=== PATIENT | female | born 1935 | race Asian ===

== ENCOUNTER 2018-01-25 20:22 | Inpatient (IN) | payer OTHER ==
[~2018-01-25] VITALS: Ht 154.9 cm; Wt 45.8 kg
[2018-01-25 20:22] VITALS: BP 87/56
[~2018-01-25 20:22] MED LIST: AMLO1TAB11 PO; ASPI81CT89 PO; CARV3.122 PO; CLOP75TA PO; FERR325E14 PO; MECL-305 PO; PANT40EC PO; PHO667 PO; SIMV10TA1 PO; VITA1TAB44 PO; [UNRECOGNIZED DRUG - CODE] PO
--- NOTE | 2018-01-25 20:22 | NUR ---
Patient noted to have existing wounds upon arrival to ER. Photos taken of wound and placed in chart. Wound covered with dressing. Physician informed.
--- NOTE | 2018-01-25 20:22 | NUR ---
NAS ALS TO ER BED 1
--- NOTE | 2018-01-25 20:24 | NUR ---
82YO F BIBA FOR SOB FROM HOME. EMS STATE THAT PT HAD SOB X 2 DAYS. PT RESPONDS TO PAIN AND WITHDRAWS. PT WITH HX OF DEMENTIA , ESRD, HTN, DM, HYPERLIPIDIMA. PT IS ANURIC. DIALYSIS M/W/F. BILATERAL CRACKLES IN LOWER BACES WITH INSPRITORY WHEEZING , PT ON 10L NON REBREATHER, O2 SAT AT 97. HR IRREGULAR AND RAPID AT 144, G-TUBE NOTED TO UPPER ABD, BS ACTIVE X4QUAD. 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 MULTIPLE ULCERATIONS NOTED, SACRAL, BILAT HEALS. DIALYSIS CATHETER NOTED TO RIGHT UPPER CHEST. WILL CONTINUE TO MONITOR, ER MD MADE AWARE
[2018-01-25] MEDS ORDERED: NACL 0.9% 1,000 ML IV ONE (20:35)
[2018-01-25 20:56] LABS: BASOPHILS # (AUTO) 0.1 K/uL (0.00-0.22); BASOPHILS % (AUTO) 0.4 % (0.0-2.0); EOSINOPHILS # (AUTO) 0.2 K/uL (0-0.4); EOSINOPHILS % (AUTO) 1.6 % (0.0-4.0); HEMATOCRIT 27.5 % (36-48); HEMOGLOBIN 8.5 g/dL (12.0-16.0); LYMPHOCYTES # (AUTO) 1.8 K/uL (2.5-16.5); LYMPHOCYTES % (AUTO) 11.8 % (20.5-51.1); MEAN CORPUSCULAR HEMOGLOBIN 26 pg (27-31); MEAN CORPUSCULAR HGB CONC 31 g/dL (33-37); MEAN CORPUSCULAR VOLUME 84.1 fL (80-94); MONOCYTES # (AUTO) 1.1 K/uL (0.8-1.0); MONOCYTES % (AUTO) 7.5 % (1.7-9.3); NEUTROPHILS % (AUTO) 78.7 % (42.2-75.2); PLATELET COUNT (AUTO) 343 K/uL (140-450); RED BLOOD CELL COUNT(AUTO) 3.27 MIL/uL (4.20-5.40); RED CELL DISTRIBUTION WIDTH 18.4 % (11.6-13.7); WHITE BLOOD COUNT (AUTO) 15.3 K/uL (4.8-10.8)
[2018-01-25 21:18] LABS: ASPARTATE AMINOTRANSFERASE 37 U/L (15-37); CARBON DIOXIDE 28.9 mmol/L (21-32); CHLORIDE 90 mmol/L (98-107); GLUCOSE 363 mg/dL (74-106); POTASSIUM 3.9 mmol/L (3.5-5.1); SODIUM SERUM 132 mmol/L (136-145); TOTAL BILIRUBIN 0.6 mg/dL (0.0-1.0)
[2018-01-25 21:20] LABS: UREA NITROGEN, BLOOD 99 mg/dL (7-18)
[2018-01-25] MEDS ORDERED: PIPERACILLIN/TAZOBACTAM 3.375 GM in DEXTROSE 5% 50 ML IV ONE (21:20)
[2018-01-25] MEDS ORDERED: VANCOMYCIN 1,000 MG in DEXTROSE 5% 250 ML IV ONE (21:20)
[2018-01-25] MEDS ORDERED: NACL 0.9% 500 ML IV ONE (21:20)
[2018-01-25] MEDS ORDERED: LEVOFLOXACIN 500 MG/D5W PREMIX 100 ML IV ONE (21:20)
[2018-01-25 21:21] LABS: CREATININE 6.1 mg/dL (0.6-1.3)
[2018-01-25] MEDS ORDERED: VANCOMYCIN 1,000 MG VIAL ONE (22:09)
[2018-01-25] MEDS ORDERED: PIPERACILLIN/TAZOBACTAM 3.375 GM VIAL IV ONE (22:09)
[2018-01-25] MEDS ORDERED: ACETAMINOPHEN 325 MG TAB PO PRN (22:50)
[2018-01-25] MEDS ORDERED: HYDROcodone/APAP 7.5/325 MG 1 TAB PO PRN (22:50)
[2018-01-25] MEDS ORDERED: DOCUSATE SODIUM 100 MG GELCAP PO PRN (22:50)
[2018-01-25] MEDS ORDERED: MORPHINE SULFATE 4 MG/ML SYR IVP PRN (22:50)
--- NOTE | 2018-01-25 23:00 | NUR ---
CALLED [facility] FOR ADMISSION. PER MATY STRANGE RN STATES " WAITING FOR ON-CALL NURSE TO COME IN, WE WILL CALL YOU BACK FOR A BED"
[2018-01-25 23:27] LABS: PROTHROMBIN TIME 10.9 secs (10.8-13.4)
[2018-01-25 23:31] LABS: CHOL/HDL RATIO 5.7 (1-4.5); FREE T4 (FREE THYROXINE) 1.1 ng/dL (0.76-1.46); MAGNESIUM 2.8 mg/dL (1.8-2.4); PHOSPHORUS 6.6 mg/dL (2.5-4.9); THYROID STIMULATING HORMONE 5.26 uIU/mL (0.34-3.74)
--- NOTE | 2018-01-25 23:45 | NUR ---
Patient will be admitted to care of [facility]. Admited to TELE. Will go to room 114. Belongings list completed. BEDSIDE Report to SARAH AUGUSTINE.
[2018-01-26] VITALS: BP 93/42
--- NOTE | 2018-01-26 | NUR ---
RECEIVED REPORT FROM ER NURSE. PT ARRIVED VIA GURNEY WITH BOTH DAUGHTERS. AOX1-NON VERBAL, ON 15L NRB, LEFT HAND #[id number] WITH VANCOCIN INFUSING. DIALYSIS ACCESS ON RIGHT UPPER CHEST - DIALYSIS MWF. G-TUBE WITH NEPHRO CARBSTEADY 120ML Q4H WITH 20ML WATER GIVEN BEFORE AND AFTER. SKIN NON-INTACT: RIGHT FOOT DTI, LEFT FOOT UNSTATIABLE, COCCYX STAGE 2. BLE AND HANDS CONTRACTURES. DISCUSSED PLAN OF CARE WITH PT AND BOTH DAUGHTERS, DAUGHTERS VERBALIZED UNDERSTANDING. MICHAEL BOOGIE (DAUGHTER) [phone], VALERIE (SON) [phone]. UPDATED WHITE BOARD. BED IN LOWEST POSITION, BED BEAKS ON, SIDE RALES UP, BED ALARM ON. HAND MITTENS IN PLACE TO PREVENT G-TUBE, FACE MASK AND IV LINE TO BE PULLED OUT (SUGGESTED BY DAUGHTERS). MD ALSO AWARE. PT IS DNR MODIFIED CODE TO NOT BE INTUBATED. BED SIDE TABLE AND CALL LIGHT WITHIN REACH. FREQUENT CHECKS NEEDED. WILL CONTINUE TO MONITOR.
[2018-01-26] MEDS ORDERED: DEXTROSE 50% 50 ML SYR IVP PRN (00:25)
[2018-01-26] MEDS: BLOOD GLUCOSE MONITORING 1 DEV DEV FS SCH ×6 (01:00→20:09)
[2018-01-26] MEDS: NACL 0.9% 1,000 ML IV SCH ×2 (01:27→23:42)
--- NOTE | 2018-01-26 01:30 | NUR ---
NEPHRO CARBSTEADY PROVIDED BY DAUGHTER TO BE GIVEN Q4H, 120ML AND 20ML OF WATER BEFORE AND AFTER VIA G-TUBE. PT IS NOT TO BE GIVEN ANYTHING BY MOUTH. NUTRITION GIVEN AND TOLERATED WELL. NO RESIDUAL. ALSO, G-TUBE CLAMP BROKEN - MD AWARE. WILL CONTINUE TO MONITOR.
[2018-01-26] MEDS: INSULIN LISPRO SLIDING SCALE 100 UNITS/ML VIAL SUBQ PRN ×4 (01:31→21:31)
--- NOTE | 2018-01-26 01:32 | NUR ---
BLOOD GLUCOSE 324. INSULIN GIVEN PER PROTOCOL. MD WOULD LIKE BLOOD GLUCOSE TO BE RECHECKED IN ONE HOUR.
--- NOTE | 2018-01-26 02:20 | NUR ---
PLACED ON 28% COOL AEROSOL MASK [id number] FLOW AT 6LPM
--- NOTE | 2018-01-26 02:52 | NUR ---
BLOOD GLUCOSE 232. MD AWARE-NO INSULIN TO BE GIVEN. WILL RECHECK BLOOD GLUCOSE AT 0400 ORDERED.
--- NOTE | 2018-01-26 03:00 | NUR ---
DR KELLER ORDERED TO INCREASE NS TO 100ML/HR UNTIL 0500 THEN DECREASE TO 50ML/HR. IS GOING TO CALL PT ACOUSTICAL MATERIAL WORKER ON INCREASING OUTPUT DURING DIALYSIS. WOULD LIKE MAP TO BE AT LEAST 65. WILL CONTINUE TO MONITOR.
[2018-01-26 04:00] VITALS: BP 103/56
--- NOTE | 2018-01-26 04:45 | NUR ---
120 ML OF NEPHRO CARBSTEADY GIVEN AND 20ML OF WATER BEFORE AND AFTER VIA G-TUBE. PT TOLERATED WELL. NO RESIDUAL. WILL CONTINUE TO MONITOR.
[2018-01-26] MEDS ORDERED: PIPERACILLIN/TAZOBACTAM 2.25 GM VIAL IV ONE (04:58)
--- NOTE | 2018-01-26 05:00 | NUR ---
NS DECREASED TO 50ML/HR.
--- NOTE | 2018-01-26 05:00 | NUR ---
BLOOD GLUCOSE 125. NO INSULIN GIVEN. MD AWARE. WILL CONTINUE TO MONITOR.
[2018-01-26] MEDS: PIPER/TAZO 2.25GM/D5W PREMIX 50 ML IV SCH ×3 (05:03→20:48)
[2018-01-26 07:21] LABS: BASOPHILS # (AUTO) 0.1 K/uL (0.00-0.22); BASOPHILS % (AUTO) 0.4 % (0.0-2.0); EOSINOPHILS # (AUTO) 0.4 K/uL (0-0.4); EOSINOPHILS % (AUTO) 2.3 % (0.0-4.0); HEMATOCRIT 28.1 % (36-48); HEMOGLOBIN 8.8 g/dL (12.0-16.0); LYMPHOCYTES # (AUTO) 2.3 K/uL (2.5-16.5); LYMPHOCYTES % (AUTO) 14.3 % (20.5-51.1); MEAN CORPUSCULAR HEMOGLOBIN 27 pg (27-31); MEAN CORPUSCULAR HGB CONC 31 g/dL (33-37); MONOCYTES # (AUTO) 1.2 K/uL (0.8-1.0); MONOCYTES % (AUTO) 7.4 % (1.7-9.3); NEUTROPHILS % (AUTO) 75.6 % (42.2-75.2); PLATELET COUNT (AUTO) 310 K/uL (140-450); RED BLOOD CELL COUNT(AUTO) 3.26 MIL/uL (4.20-5.40); RED CELL DISTRIBUTION WIDTH 18.6 % (11.6-13.7); WHITE BLOOD COUNT (AUTO) 15.9 K/uL (4.8-10.8)
--- NOTE | 2018-01-26 07:24 | NUR ---
ENDORSED PT CARE TO DAY SHIFT NURSE CODY FOR CONTINUITY OF CARE.
--- NOTE | 2018-01-26 07:24 | NUR ---
RECEIVED REPORT FROM NIGHTSHIFT NURSE AT BEDSIDE. PATIENT FAMILY MEMBER AT BEDSIDE AT THIS TIME. PATIENT RESPONDS TO NAME BUT IS NONVERBAL. PATIENT APPEARS TACHYPNEIC AT 23 BREATHS/MIN. PATIENT ON 28% COOL AEROSOL MASK [id number] FLOW AT 6LPM. PATIENT ON CONTINUOUS PULSE OXIMETER MONITORING. PATIENT HAS DIALYSIS ACCESS ON RIGHT UPPER CHEST. PATIENT HAS G-TUBE ON ABDOMEN. PATIENT HAS MULTIPLE WOUNDS ON RIGHT FOOT DTI, LEFT FOOT UNSTAGEABLE, COCCYX STAGE 2. PATIENT'S LOWER EXTREMITIES ARE CONTRACTED WELL HANDS. FLACC SCORE IS 0 FOR PATIENT. UPDATED WHITE BOARD IN PATIENT'S ROOM. PATIENT'S BED LOWERED TO LOWEST SETTING WITH ALARM ON. RIGHT HAND MITTEN IN PLACE TO PROTECT LINES. BED SIDE TABLE AND CALL LIGHT WITHIN REACH. WILL CONTINUE TO MONITOR PATIENT.
[2018-01-26] MEDS ORDERED: BLOOD GLUCOSE MONITORING 1 DEV DEV FS SCH (07:30)
[2018-01-26 07:41] LABS: ALBUMIN 2.2 g/dL (3.4-5.0); ANION GAP 19.8 (8-16); ASPARTATE AMINOTRANSFERASE 35 U/L (15-37); CARBON DIOXIDE 27.8 mmol/L (21-32); CHLORIDE 92 mmol/L (98-107); GLUCOSE 149 mg/dL (74-106); MAGNESIUM 2.9 mg/dL (1.8-2.4); PHOSPHORUS 5.9 mg/dL (2.5-4.9); POTASSIUM 3.6 mmol/L (3.5-5.1); SODIUM SERUM 136 mmol/L (136-145); TOTAL BILIRUBIN 0.8 mg/dL (0.0-1.0)
[2018-01-26 07:47] LABS: CREATININE 5.9 mg/dL (0.6-1.3); UREA NITROGEN, BLOOD 100 mg/dL (7-18)
[2018-01-26 08:00] VITALS: BP 117/58
[2018-01-26] MEDS ORDERED: CALCIUM ACETATE 667 MG TAB PO SCH (08:00)
[2018-01-26] MEDS ORDERED: amLODIPine 5 MG TAB GT SCH (09:00)
[2018-01-26] MEDS: VALSARTAN 80 MG TAB GT SCH ×2 (09:00→09:03)
[2018-01-26] MEDS ORDERED: ASPIRIN 81 MG TAB.CHEW GT SCH (09:00)
[2018-01-26] MEDS ORDERED: CLOPIDOGREL 75 MG TAB GT SCH (09:00)
[2018-01-26] MEDS ORDERED: CARVEDILOL 3.125 MG TAB GT SCH (09:00)
[2018-01-26] MEDS: LACTOBACILLUS RHAMNOSUS GG 1 EACH CAP GT SCH (09:03)
[2018-01-26] MEDS: VIT-B COMP/VIT-C/FOLIC ACID 1 TAB GT SCH (09:04)
--- NOTE | 2018-01-26 09:10 | NUR ---
120 ML NEPHRO CARBSTEADY GIVEN AND 20ML OF WATER BEFORE AND AFTER VIA G-TUBE. PT TOLERATED WELL. WILL CONTINUE TO MONITOR PATIENT.
--- NOTE | 2018-01-26 09:40 | NUR ---
FAXED OVER REQUEST TO OBTAIN MEDICAL RECORDS FOR PATIENT FROM [facility] MEDICAL RECORDS.
--- NOTE | 2018-01-26 11:39 | NUR ---
PATIENT RESTING IN BED AT THIS TIME. FLACC SCORE 0. O2 SATURATION AT 94%. NO DISTRESS NOTED. WILL CONTINUE TO MONITOR PATIENT.
[2018-01-26 12:00] VITALS: BP 105/45
--- NOTE | 2018-01-26 12:19 | NUR ---
DIALYSIS NURSE STARTED HEMODIALYSIS WITH PATIENT. PATIENT VITAL SIGNS ARE STABLE AT THIS TIME. WILL CONTINUE TO MONITOR PATIENT.
[2018-01-26] MEDS ORDERED: MECLIZINE 25 MG TAB PO PRN (13:00)
[2018-01-26] MEDS ORDERED: SEVE800T6 GT (13:03)
--- NOTE | 2018-01-26 13:10 | NUR ---
PATIENT HAS BEEN SCREENED AND CATEGORIZED HIGH NUTRITION RISK. PATIENT WILL BE SEEN WITHIN 1-2 DAYS OF ADMISSION. 01/26/18 - 01/27/18 JEN REED MBA, RD
--- NOTE | 2018-01-26 13:25 | NUR ---
DR. CHIN PERFORMED WOUND CARE ON PATIENT'S LEFT HEEL ULCER. DR. BAIRD PUT IN ORDERS FOR PATIENT'S WOUNDS. WILL CONTINUE TO MONITOR PATIENT.
[2018-01-26] MEDS ORDERED: LEVA0.6318 INH (13:33)
--- NOTE | 2018-01-26 13:33 | NUR ---
NO DISTRESS NOTED. PATIENT STILL WITH DIALYSIS NURSE. WILL CONTINUE TO MONITOR PATIENT.
[2018-01-26] MEDS ORDERED: ALBUTEROL SULFATE/IPRATROPIU 3 ML SOL IH PRN (13:35)
--- NOTE | 2018-01-26 13:57 | NUR ---
120 ML NEPHRO CARBSTEADY GIVEN AND 20ML OF WATER BEFORE AND AFTER VIA G-TUBE. PT TOLERATED WELL. PATIENT STILL RECEIVING DIALYSIS. WILL CONTINUE TO MONITOR PATIENT.
--- NOTE | 2018-01-26 15:45 | NUR ---
DIALYSIS NURSE FINISHED WITH PROCEDURE. PATIENT VITAL SIGNS WITHIN NORMAL LIMITS. 650 ML WAS PULLED OUT OF PATIENT. WILL CONTINUE TO MONITOR. Addendum: 01/26/18 at 1853 by Otilio Bello II, RN DIALYSIS NURSE USED HEPARIN 10,000 U TO FLUSH PATIENT'S DIALYSIS ACCESS.
[2018-01-26 16:00] VITALS: BP 96/43
[2018-01-26] MEDS ORDERED: PANTOPRAZOLE 40 MG TABEC PO SCH (16:30)
[2018-01-26] MEDS: SEVELAMER CARBONATE 800 MG TAB PO SCH (17:05)
--- NOTE | 2018-01-26 17:07 | NUR ---
01/26/18 RD INITIAL ASSESSMENT COMPLETED PLEASE REFER TO NUTRITION ASSESSMENT UNDER CARE ACTIVITY FOR ESTIMATED NUTRITIONAL NEEDS. RD RECOMMENDATIONS: 1- RECOMMEND CONTINUE CURRENT TF NOVASOURCE RENAL 120MLS Q4HRS 20MLS FLUSH; SUFFICIENT TO MEET 100% ESTIMATED ENERGY & PROTEIN NEEDS 2- F/U 2-3 DAYS; HR JEN REED MBA, RD
--- NOTE | 2018-01-26 18:00 | NUR ---
120 ML NEPHRO CARBSTEADY GIVEN AND 20ML OF WATER BEFORE AND AFTER VIA G-TUBE. PT TOLERATED WELL. WILL CONTINUE TO MONITOR PATIENT.
--- NOTE | 2018-01-26 18:20 | NUR ---
ATTEMPTED TO INSERT A STRAIGHT CATHETER INTO PATIENT FOR A URINE SAMPLE PRACTICING STERILE TECHNIQUE. PATIENT IS OLIGURIC. NOT ENOUGH URINE CAME OUT OF PATIENT. PATIENT HAD DIALYSIS EARLIER.
[2018-01-26] MEDS: ALBUTEROL SULFATE/IPRATROPIU 3 ML SOL IH SCH (19:18)
--- NOTE | 2018-01-26 19:25 | NUR ---
GAVE REPORT TO NIGHTSHIFT NURSE. PATIENT IN STABLE CONDITION.
--- NOTE | 2018-01-26 19:35 | NUR ---
RECEIVED REPORT FROM DAY SHIFT, PATIENT RESTING IN BED, NON-VERBAL, NO S/S OF DISTRESS NOTED, RT AT THE BEDSIDE GIVING BREATHING TREATMENT. PORT-A-CATH DRESSING DRY AND INTACT TO THE RIGHT UPPER CHEST, IV TO THE LEFT HAND, PATENT AND INTACT. G-TUBE IN PLACE, PLACEMENT CHECKED AND PATENT. DRESSING ON THE LEFT FOOT DRY AND INTACT. CALL LIGHT WITHIN REACH, HEAD OF BED ELEVATED, SAFETY MEASURE ENSURED, WILL CONTINUE TO MONITOR.
[2018-01-26 20:00] VITALS: BP 126/38
[2018-01-26] MEDS: CALCIUM ACETATE 667 MG TAB PO SCH (20:46)
[2018-01-26] MEDS: ISOSORBIDE DINITRATE 10 MG TAB PO SCH (20:47)
[2018-01-26] MEDS: SIMVASTATIN 20 MG TAB GT SCH (20:47)
[2018-01-26] MEDS: FERROUS SULFATE 300 MG/5 ML UDC PO SCH (20:54)
[2018-01-26] MEDS ORDERED: SIMVASTATIN 10 MG TAB GT SCH (21:00)
[2018-01-26] MEDS ORDERED: FERROUS SULFATE 325 MG TABEC PO SCH (21:00)
--- NOTE | 2018-01-26 21:48 | NUR ---
NO RESIDUAL, DUE MEDICATION GIVEN, PATIENT TOLERATED WELL, REPOSITIONED PATIENT WITH THE MOTOR OPERATOR, HEAD OF BED ELEVATED, SAFETY MEASURE ENSURED, WILL CONTINUE TO MONITOR. Addendum: 01/27/18 at 0602 by Dorcas Valdez RN 120ML NEPHRO GIVEN AND 20 ML WATER BEFORE AND AFTER.
--- NOTE | 2018-01-26 21:55 | NUR ---
HAND MOLDER MEAT CALLED AND STATED NO BILATERAL PREVALON HEEL PROTECTOR BOOTS AVAILABLE AT THIS TIME, WILL ENDORSE DAY SHIFT TO GET THE BOOTS. PATIENT'S FEET WERE ELEVATED ON THE PILLOWS, WILL CONTINUE TO MONITOR.
--- NOTE | 2018-01-26 22:50 | NUR ---
NOTIFIED DR. GAUTHIER THAT SOMETHING WAS NOTICEABLE FROM PATIENT'S VAGINA, DR. GAUTHIER ASSESSED THE PATIENT AT THE BEDSIDE, CONFIRMED THAT PATIENT HAS PROLAPSE AND STATED HE WOULD INFORMED THE DAY TEAM.
[2018-01-27] VITALS: BP 108/58
[2018-01-27] MEDS: BLOOD GLUCOSE MONITORING 1 DEV DEV FS SCH ×7 (00:15→23:55)
--- NOTE | 2018-01-27 00:16 | NUR ---
NO RESIDUAL, G-TUBE PLACEMENT CHECKED, 120 ML NEPHRO GIVEN AND 20ML OF WATER BEFORE AND AFTER VIA G-TUBE. REPOSITIONED PATIENT WITH THE SED SPECIAL EDUCATION TEACHER, BOTH FEET ELEVATED ON THE PILLOWS, HEAD OF BED ELEVATED, SAFETY MEASURE ENSURED, WILL CONTINUE TO MONITOR.
[2018-01-27] MEDS: INSULIN LISPRO SLIDING SCALE 100 UNITS/ML VIAL SUBQ PRN ×6 (00:51→23:55)
--- NOTE | 2018-01-27 02:50 | NUR ---
REPOSITIONED PATIENT WITH THE TRUSS MAKER, BOTH FEET ELEVATED ON THE PILLOWS, CALL LIGHT WITHIN REACH, SAFETY MEASURE ENSURED, WILL CONTINUE TO MONITOR.
[2018-01-27 04:00] VITALS: BP 109/55
[2018-01-27] MEDS: PIPER/TAZO 2.25GM/D5W PREMIX 50 ML IV SCH ×3 (04:08→20:33)
--- NOTE | 2018-01-27 04:24 | NUR ---
NO RESIDUAL, G-TUBE PLACEMENT CHECKED, 120 ML NEPHRO GIVEN AND 20ML OF WATER BEFORE AND AFTER VIA G-TUBE. REPOSITIONED PATIENT WITH THE COST CONTROLLER, BOTH FEET ELEVATED ON THE PILLOWS, HEAD OF BED ELEVATED, SAFETY MEASURE ENSURED, WILL CONTINUE TO MONITOR.
[2018-01-27] MEDS: ALBUTEROL SULFATE/IPRATROPIU 3 ML SOL IH SCH ×3 (06:43→18:44)
[2018-01-27] MEDS: PANTOPRAZOLE 40 MG INJ VIAL IV SCH ×2 (06:44→17:20)
[2018-01-27 06:48] LABS: BASOPHILS % (AUTO) 0.2 % (0.0-2.0); EOSINOPHILS # (AUTO) 0.6 K/uL (0-0.4); EOSINOPHILS % (AUTO) 4.1 % (0.0-4.0); HEMATOCRIT 27.5 % (36-48); HEMOGLOBIN 8.5 g/dL (12.0-16.0); LYMPHOCYTES % (AUTO) 6.8 % (20.5-51.1); MEAN CORPUSCULAR HEMOGLOBIN 27 pg (27-31); MEAN CORPUSCULAR HGB CONC 31 g/dL (33-37); MEAN CORPUSCULAR VOLUME 86.2 fL (80-94); MONOCYTES # (AUTO) 0.8 K/uL (0.8-1.0); MONOCYTES % (AUTO) 5.5 % (1.7-9.3); NEUTROPHILS # (AUTO) 12.8 K/uL (1.8-7.7); NEUTROPHILS % (AUTO) 83.4 % (42.2-75.2); PLATELET COUNT (AUTO) 343 K/uL (140-450); RED BLOOD CELL COUNT(AUTO) 3.19 MIL/uL (4.20-5.40); RED CELL DISTRIBUTION WIDTH 18.2 % (11.6-13.7); WHITE BLOOD COUNT (AUTO) 15.3 K/uL (4.8-10.8)
--- NOTE | 2018-01-27 06:49 | NUR ---
REPOSITIONED PATIENT WITH THE RAG CUTTING MACHINE OPERATOR, PATIENT TOLERATED WELL. BOTH FEET ELEVATED ON THE PILLOWS. RT IN THE ROOM GIVING BREATHING TREATMENT. WILL CONTINUE TO MONITOR.
[2018-01-27 06:59] LABS: ANION GAP 14.3 (8-16); CARBON DIOXIDE 27.1 mmol/L (21-32); CHLORIDE 99 mmol/L (98-107); CREATININE 3.3 mg/dL (0.6-1.3); GLUCOSE 277 mg/dL (74-106); POTASSIUM 3.4 mmol/L (3.5-5.1); SODIUM SERUM 137 mmol/L (136-145); UREA NITROGEN, BLOOD 39 mg/dL (7-18)
[2018-01-27 07:07] LABS: MAGNESIUM 2.2 mg/dL (1.8-2.4); PHOSPHORUS 3.8 mg/dL (2.5-4.9)
--- NOTE | 2018-01-27 07:22 | NUR ---
ENDORSED PLAN OF CARE TO DAY SHIFT RN, PATIENT RESTING IN BED, IN STABLE CONDITION.
[2018-01-27 08:00] VITALS: BP 120/63
--- NOTE | 2018-01-27 08:00 | NUR ---
RECEIVED REPORT FROM MACKENZIE AUGUSTINE FOR CONTINUITY OF CARE. PATIENT AWAKE FOLLOWS COMMAND NON-VERBAL O2 WITH FACE MASK , NO DISCOMFORT NOTED DIALYSIS ACCESS RIGHT UPPER CHEST CLEAN AND COVERED WITH DRESSING. IV SITE LEFT HAND G 22 INTACT AND PATENT . PLAN OF CARE DISCUSS WITH THE PATIENT VITALS STABLE WILL CONTINUE TO MONITOR.
[2018-01-27] MEDS ORDERED: AMLODIPINE PO SCH (09:00)
[2018-01-27] MEDS ORDERED: VALSARTAN PO SCH (09:00)
[2018-01-27] MEDS: HYDRAGUARD CREAM TP SCH ×2 (09:00→20:34)
[2018-01-27] MEDS ORDERED: THERAHONEY GEL 42.5 GM TP PRN (09:20)
--- NOTE | 2018-01-27 09:30 | NUR ---
DUE MEDS GIVEN THROUGH G-TUBE TOLERATED WELL. BOLUS FEEDING NEPRO 120ML GIVEN NO RESIDUAL AT THIS TIME
[2018-01-27] MEDS: VIT-B COMP/VIT-C/FOLIC ACID 1 TAB GT SCH (09:33)
[2018-01-27] MEDS: FERROUS SULFATE 300 MG/5 ML UDC PO SCH ×2 (09:33→20:33)
[2018-01-27] MEDS: LACTOBACILLUS RHAMNOSUS GG 1 EACH CAP GT SCH (09:33)
[2018-01-27] MEDS: CALCIUM ACETATE 667 MG TAB PO SCH ×2 (09:34→20:33)
[2018-01-27] MEDS: ISOSORBIDE DINITRATE 10 MG TAB PO SCH ×2 (09:34→20:33)
[2018-01-27] MEDS: SEVELAMER CARBONATE 800 MG TAB PO SCH ×3 (09:36→17:10)
[2018-01-27] MEDS: INSULIN LANTUS 100 UNITS/ML 10 ML VIAL SUBQ SCH (10:00)
--- NOTE | 2018-01-27 10:00 | NUR ---
BED BATH GIVEN REPOSITIONED TOLERATED WELL
[2018-01-27 11:55] VITALS: BP 128/58
--- NOTE | 2018-01-27 12:00 | NUR ---
CHECKED BLOOD SUGAR 272 SLIDING SCALE COVERAGE GIVEN REPOSITION AT THIS TIME.
[2018-01-27] MEDS: THERAHONEY GEL 42.5 GM TP SCH (12:40)
--- NOTE | 2018-01-27 13:10 | NUR ---
WOUND CARE DONE WITH YOLANDE WOUND CARE NURSE TOLERATED WELL
--- NOTE | 2018-01-27 14:00 | NUR ---
WOUND CARE EVALUATION NOTES: REASON FOR EVALUATION: BILATERAL WOUND ON HEELS SKIN ASSESSMENT DONE ON THIS 82 Y/O FEMALE PATIENT FROM HOME TO [facility], WITH INITIAL DIAGNOSIS OF DIFFICULTY BREATHING. PAST MEDICAL HISTORY INCLUDE CVA, DIABETES, HTN, AND ESRD WITH HD. ALL ABOVE INFORMATION WAS OBTAINED FROM THE ADMISSION H&P. LABS ARE WBC 15.3, H/H 8.5/27.5, GLUCOSE 277, ALBUMIN 2.2. PATIENT IS AWAKE WHEN TOUCHED. SKIN WARM TO TOUCH, THIN TOENAILS, NO EDEMA, NO HAIR GROWTH AND BILATERAL PEDAL PULSES PRESENT. CONTRACTURE NOTICE TO R/L KNEES. INCONTINENT BOWEL AND BLADDER.PLAN OF CARE AND PRESSURE PREVENTIVE MEASURES DISCUSSED WITH PT AND PRIMARY NURSE. HEEL RAISERS APPLY TO BILATERAL HEELS. COMORBIDITIES RELATED TO SKIN BREAKS: INFECTION, LOW ALBUMIN LEVEL, DM, IMPAIRED OF MOBILITY, CHRONIC BOWEL INCONTINENT, HOB ELEVATED THE MAJORITY OF THE DAY FOR MEDICAL CONDITION, ESRD WITH HD. INTEGUMENTARY: -UPPER AND LOWER EXTREMITIES SKIN DRYNESS. -GT ZAINAB-STOMA SKIN DRY, CLEAN AND INTACT. -SACRALCOCCYX OLD HEALED SCAR, SURROUNDING SCAR TISSUE NON-BLANCHABLE REDNESS 4X5CM -DTI TO R HEEL, 3X1.8 CM, 100% MAROON -DIABETIC ULCER TO RIGHT 1ST TOE PLANTAR 3X1.2 CM DRY CALLUS TYPE SCAB, NO ODOR. -DIABETIC ULCER TO RIGHT LATERAL ANKLE 1.5X1.5 CM DRY CALLUS TYPE SCAB. - DIABETIC ULCER TO LEFT 1ST TOE MEDIAL 1.2X1.2 CM DRY CALLUS TYPE SCAB, NO ODOR. - DIABETIC ULCER TO LEFT 5TH TOE 1.5X1.5 CM DRY CALLUS TYPE SCAB, NO ODOR. - LEFT HEEL PRESSURE INJURY STAGE 4, 7X4.5X0.3 WOUND BED PALE PINK MOIST WITH UNDERMINING AT 12-1 O'CLOCK 1.5CM, IRREGULAR WOUND SHAPE. WOUND EDGE DRY WITH SURROUNDING SKIN PURPLE/BROWN IN COLOR, INDICATED FURTHER DAMAGE. - LEFT LATERAL ANKLE PRESSURE INJURY STAGE 4, 3X5X0.1CM, WOUND BED PINK MOIST WITH NO ODOR, IRREGULAR WOUND SHAPE. WOUND EDGE DRY WITH SURROUNDING SKIN NECROTIC TISSUE BETWEEN THE DIRECTIONS OF 6-8 O'CLOCK. RECOMMENDATIONS: -CONTINUE TO FOLLOW DR. BELL BABIN FOOT AND ANKLE OUT PATIENT CLINIC UPON DISCHARGED. -APPLY HYDRAGUARD TO SACRALCOCCYX AND COVER WITH FORM DRESSING QD AND PRN IF SOILING PREVENTION -APPLY SKIN PREP TO RIGHT HEEL PRESSURE INJURY DTI BID AND LEAVE IT OPEN TO AIR. -PAINT LEFT / RIGHT FOOT MULTIPLE DRY DIABETIC ULCER SCABS WITH BETADINE SOLUTION BID WC AND LEAVE IT OPEN TO AIR -CLEANSE LEFT HEEL AND LEFT LATERAL ANKLE PRESSURE INJURIES WITH NS. PAT DRY APPLY THERAHONEY GEL AND FORM DRESSING COVER WITH ABD PAD WRAP WITH KERLIX ROLL SECURE WITH TAPE QD DAY AND PRN IF SOILING -TURN AND REPOSITION PATIENT Q2H -ASSESS AND MONITOR SKIN CONDITION DURING POSITION CHANGE, PLEASE PAY ATTENTION TO LEFT AND RIGHT HEELS -OFFLOAD BILATERAL HEELS BY PLACING PILLOWS UNDER CALVES AT ALL TIMES, UNLESS OTHERWISE CONTRAINDICATED -HEEL RAISERS TO BILATERAL HEELS AT ALL TIMES -PRESSURE REDISTRIBUTION SURFACE THERAPY -KEEP SKIN CLEAN AND DRY AT ALL TIMES. RECTAL TUBE FOR MOISTURE CONTROL UNLESS OTHERWISE CONTRAINDICATED. RECOMMENDATIONS DISCUSSED WITH PRIMARY RN AND DR. LUI WILL FOLLOW UP PATIENT Q 7 -10 DAYS AND PRN. PLEASE CONTACT WOUND CARE NURSE FOR ANY QUESTION OR CHANGES IN WOUND CONDITION Addendum: 01/27/18 at 1531 by Mannie Romano (Grace) RN ADD A RECOMMENDATION FOR HOME HEALTH CARE NURSE TO FOLLOW UP WOUND CARE IF DISCHARGED HOME. PT. ADMITTED WITH PRESSURE INJURIES TO LEFT HEEL AND LEFT ANKLE STAGE 4 , ALSO RIGHT HEEL DTI. PT. WAS SEEN BY DR CHIN , SHOTGUN SHELL ASSEMBLY MACHINE ADJUSTER ON 01/26/2018. WOUND CARE NURSE SPOKE TO DAUGHTER MICHAEL AGUIRRE PLAN OF CARE, ALL QUESTION ANSWERED.
--- NOTE | 2018-01-27 15:11 | NUR ---
REPOSITIONED KEPT PATIENT CLEAN AND DRY NO DISTRESS NOTED . DIALYSIS NURSE IN THE UNIT ABOUT TO START DIALYSIS.
[2018-01-27 16:12] VITALS: BP 133/54
[2018-01-27] MEDS ORDERED: RIVAROXABAN 15 MG TAB PO SCH (16:30)
--- NOTE | 2018-01-27 17:30 | NUR ---
HD COMPLETED OUT PUT 1.6L SLEEPING COMFORTABLE NO DISTRESS NOTED VITALS STABLE
--- NOTE | 2018-01-27 19:01 | NUR ---
SAFETY MAINTAINED CALL LIGHT IN REACH STABLE CONDITION AT THIS TIME.
--- NOTE | 2018-01-27 19:35 | NUR ---
RECEIVED REPORT FROM DAY SHIFT, PATIENT RESTING IN BED, NON-VERBAL, NO S/S OF DISTRESS NOTED. PORT-A-CATH DRESSING DRY AND INTACT TO THE RIGHT UPPER CHEST, IV TO THE LEFT HAND, PATENT AND INTACT. G-TUBE IN PLACE, PLACEMENT CHECKED AND PATENT. DRESSING ON THE LEFT FOOT DRY AND INTACT. BILATERAL HEEL PROTECTOR BOOTS ON, CALL LIGHT WITHIN REACH, HEAD OF BED ELEVATED, SAFETY MEASURE ENSURED, WILL CONTINUE TO MONITOR.
[2018-01-27 20:00] VITALS: BP 106/42
[2018-01-27] MEDS: SIMVASTATIN 20 MG TAB GT SCH (20:33)
--- NOTE | 2018-01-27 20:34 | NUR ---
NO RESIDUAL, G-TUBE PLACEMENT CHECKED, DUE MEDICATION GIVEN, 120 ML NEPHRO GIVEN AND 20ML OF WATER BEFORE AND AFTER VIA G-TUBE. REPOSITIONED PATIENT WITH THE UNDERWEAR CUTTER, BILATERAL HEEL PROTECTOR BOOTS ON, HEAD OF BED ELEVATED, SAFETY MEASURE ENSURED, WILL CONTINUE TO MONITOR.
[2018-01-27] MEDS: CARVEDILOL 3.125 MG TAB PO SCH (20:42)
[2018-01-27] MEDS: APIXABAN 2.5 MG TAB PO SCH (21:00)
--- NOTE | 2018-01-27 21:26 | NUR ---
RADIOLOGY TRANSPORTER SAID ELIQUIS NOT AVAILABLE.
--- NOTE | 2018-01-27 22:29 | NUR ---
REPOSITIONED PATIENT WITH THE COMMUNICATIONS EQUIPMENT OPERATOR, PATIENT TOLERATED WELL. HEAD OF BED ELEVATED, BILATERAL HEEL PROTECTOR BOOTS ON, SAFETY MEASURE ENSURED, WILL CONTINUE TO MONITOR.
[2018-01-27] MEDS: NACL 0.9% 1,000 ML IV SCH (23:52)
[2018-01-28] VITALS: BP 103/44
--- NOTE | 2018-01-28 00:14 | NUR ---
NO RESIDUAL, G-TUBE PLACEMENT CHECKED, 120 ML NEPHRO GIVEN AND 20ML OF WATER BEFORE AND AFTER VIA G-TUBE. G-TUBE DRESSING CHANGED, G-TUBE SITE CLEAN AND INTACT, REPOSITIONED PATIENT WITH THE JOGGER OPERATOR, BILATERAL HEEL PROTECTOR ON, HEAD OF BED ELEVATED, SAFETY MEASURE ENSURED, WILL CONTINUE TO MONITOR.
--- NOTE | 2018-01-28 00:30 | NUR ---
HEART RATE 145 ON ELECTROMYOGRAPHIC TECHNICIAN, MADE DR. GAUTHIER AWARE. DR. GAUTHIER SAID," OKAY, I WILL ORDER EKG. "
--- NOTE | 2018-01-28 01:25 | NUR ---
HEART RATE 151, UPON ASSESSMENT, PATIENT RESTING IN BED, NO S/S OF DISTRESS NOTED, O2SAT 95%, BP 115/46, WILL CONTINUE TO MONITOR.
--- NOTE | 2018-01-28 01:29 | NUR ---
HEART RATE 150, NOTIFIED DR. GAUTHIER, AND INFORMED THE EKG WAS ORDERED ROUTINE. DR. GAUTHIER SAID," I WILL CHANGE TO STAT."
--- NOTE | 2018-01-28 01:49 | NUR ---
CALLED RT FOR EKG STAT, I WAS INFORMED THAT "I WILL COME TO THE FLOOR NOW."
--- NOTE | 2018-01-28 02:07 | NUR ---
EKG DONE, NOTIFIED DR. GAUTHIER THE RESULT, AND BP 100/48. DR. GAUTHIER SAID," GO AHEAD GIVE CARDIZEM."
[2018-01-28] MEDS ORDERED: DILTIAZEM 25 MG/5 ML VIAL IVP SCH (02:15)
[2018-01-28] MEDS ORDERED: DILTIAZEM 30 MG TAB PO SCH (03:00)
--- NOTE | 2018-01-28 03:08 | NUR ---
BP 127/66, HR 139, CARDIZEM 30MG ADMINISTERED ORDERED, PATIENT TOLERATED WELL. WILL CONTINUE TO MONITOR.
[2018-01-28] MEDS: INSULIN LISPRO SLIDING SCALE 100 UNITS/ML VIAL SUBQ PRN ×5 (03:54→21:51)
[2018-01-28] MEDS: BLOOD GLUCOSE MONITORING 1 DEV DEV FS SCH ×5 (03:55→20:00)
[2018-01-28 04:00] VITALS: BP 127/66
[2018-01-28] MEDS: PIPER/TAZO 2.25GM/D5W PREMIX 50 ML IV SCH (04:12)
--- NOTE | 2018-01-28 04:15 | NUR ---
DR. GAUTHIER SAID," IT'S OKAY TO FEED." NO RESIDUAL, G-TUBE PLACEMENT CHECKED, 120 ML NEPHRO GIVEN AND 20ML OF WATER BEFORE AND AFTER VIA G-TUBE. REPOSITIONED PATIENT WITH THE DRAFTING SUPERVISOR, BILATERAL HEEL PROTECTOR ON, HEAD OF BED ELEVATED, SAFETY MEASURE ENSURED, WILL CONTINUE TO MONITOR.
[2018-01-28 06:08] LABS: BASOPHILS % (AUTO) 0.3 % (0.0-2.0); EOSINOPHILS # (AUTO) 0.5 K/uL (0-0.4); EOSINOPHILS % (AUTO) 3.1 % (0.0-4.0); HEMOGLOBIN 7.8 g/dL (12.0-16.0); LYMPHOCYTES # (AUTO) 2.2 K/uL (2.5-16.5); LYMPHOCYTES % (AUTO) 13.5 % (20.5-51.1); MEAN CORPUSCULAR HEMOGLOBIN 26 pg (27-31); MEAN CORPUSCULAR HGB CONC 30 g/dL (33-37); MEAN CORPUSCULAR VOLUME 86.1 fL (80-94); MONOCYTES # (AUTO) 1.1 K/uL (0.8-1.0); MONOCYTES % (AUTO) 6.9 % (1.7-9.3); NEUTROPHILS # (AUTO) 12.4 K/uL (1.8-7.7); NEUTROPHILS % (AUTO) 76.2 % (42.2-75.2); PLATELET COUNT (AUTO) 345 K/uL (140-450); RED BLOOD CELL COUNT(AUTO) 3.02 MIL/uL (4.20-5.40); RED CELL DISTRIBUTION WIDTH 18.4 % (11.6-13.7); WHITE BLOOD COUNT (AUTO) 16.3 K/uL (4.8-10.8)
[2018-01-28 06:22] LABS: T4 (THYROXINE) 5.3 ug/dL (4.5-12.0)
[2018-01-28] MEDS: PANTOPRAZOLE 40 MG INJ VIAL IV SCH ×2 (06:31→17:14)
--- NOTE | 2018-01-28 06:40 | NUR ---
DUE MEDICATION GIVEN, PATIENT TOLERATED WELL. NO S/S OF DISTRESS NOTED, HEAD OF BED ELEVATED, CALL LIGHT WITHIN REACH, SAFETY MEASURE ENSURED, WILL CONTINUE TO MONITOR.
[2018-01-28 06:48] LABS: ANION GAP 18.2 (8-16); CARBON DIOXIDE 23.2 mmol/L (21-32); CHLORIDE 97 mmol/L (98-107); GLUCOSE 235 mg/dL (74-106); POTASSIUM 3.4 mmol/L (3.5-5.1); SODIUM SERUM 135 mmol/L (136-145)
[2018-01-28 06:54] LABS: CREATININE 4.8 mg/dL (0.6-1.3); UREA NITROGEN, BLOOD 64 mg/dL (7-18)
[2018-01-28] MEDS: ALBUTEROL SULFATE/IPRATROPIU 3 ML SOL IH SCH ×3 (06:55→18:46)
[2018-01-28 06:56] LABS: MAGNESIUM 2.3 mg/dL (1.8-2.4); PHOSPHORUS 3.4 mg/dL (2.5-4.9)
--- NOTE | 2018-01-28 07:23 | NUR ---
ENDORSED PLAN OF CARE TO DAY SHIFT, PATIENT RESTING IN BED, IN STABLE CONDITION.
--- NOTE | 2018-01-28 07:25 | NUR ---
RECEIVED BEDSIDE REPORT FROM PEST CONTROL APPLICATOR NURSE. PATIENT IS SLEEPING. NO SIGNS OF DISTRESS ON AERSOL MIST. IV ON L HAND 22 G INFUSING NS AT 10ML/HR. IV IS CLEAN, DRY AND INTACT. R ARM IS CONTRACTED AND BLE IS CONTRACTED FROM HX OF A STROKE. R UPPER CHEST CATH FOR DIALYSIS IS CLEAN, DRY AND INTACT. G TUBE IS IN PLACE. CHECKED FOR PLACEMENT WITH SWOOSH AND NO RESIDUAL. G TUBE IS CLEAN, DRY AND INTACT. L HEEL HAS TWO ULCERS. DRESSING IS CLEAN, AND DRY. HEEL PROTECTOR BOOTS ARE IN PLACE. TELE MONITOR IS IN PLACE. PATIENT IS DNR. WILL CONTINUE TO MONITOR THE PATIENT. BED IN LOW POSITION. BED ALARM IS ON,
[2018-01-28 08:00] VITALS: BP 116/46
--- NOTE | 2018-01-28 08:30 | NUR ---
CHECKED FOR GTUBE PLACEMENT USING THE SWOOSH AND NO RESIDUAL. ADMINISTERED 20ML OF WATER BEFORE AND AFTER ADMINISTRATION OF 120ML BOLUS OF NEPRO THERAPEUTIC NUTRITION. PATIENT TOLERATED WELL. WILL CONTINUE TO MONITOR THE PATIENT.
[2018-01-28] MEDS: INSULIN LANTUS 100 UNITS/ML 10 ML VIAL SUBQ SCH (09:00)
[2018-01-28] MEDS: ISOSORBIDE DINITRATE 10 MG TAB PO SCH ×2 (09:00→21:40)
[2018-01-28] MEDS: SEVELAMER CARBONATE 800 MG TAB PO SCH ×3 (09:00→17:00)
[2018-01-28] MEDS: CARVEDILOL 3.125 MG TAB PO SCH ×2 (09:00→21:40)
[2018-01-28] MEDS: VIT-B COMP/VIT-C/FOLIC ACID 1 TAB GT SCH (09:03)
[2018-01-28] MEDS: FERROUS SULFATE 300 MG/5 ML UDC PO SCH ×2 (09:03→21:38)
[2018-01-28] MEDS: LACTOBACILLUS RHAMNOSUS GG 1 EACH CAP GT SCH (09:04)
[2018-01-28] MEDS: CALCIUM ACETATE 667 MG TAB PO SCH ×2 (09:05→21:39)
[2018-01-28] MEDS: APIXABAN 2.5 MG TAB PO SCH ×2 (09:23→21:00)
[2018-01-28] MEDS: HYDRAGUARD CREAM TP SCH ×3 (09:36→21:44)
--- NOTE | 2018-01-28 09:36 | NUR ---
DID NOT ADMINISTER RENVELA PER PHARMACY. DO NOT CRUSH RENVELA D/T THE COATING. PATIENTS DAUGHTER STATED SHE WILL BRING THE RENVELA POWDER FORM TOMORROW. PHARMACY DOES NOT HAVE THE POWDER FORM. WILL LET THE DOCTOR KNOW.
--- NOTE | 2018-01-28 09:37 | NUR ---
CHECKED FOR GTUBE PLACEMENT USING SWOOSH AND NO RESIDUAL. ADMINISTERED MEDS. PATIENT TOLERATED WELL. FLUSHED WITH 20ML OF WATER BEFORE AND AFTER MED ADMINISTRATION. CLEANSED BUTTOCKED WITH STUDENT NURSE AND APPLIED HYDROGUARD. PATIENT TOLERATED WELL. WILL CONTINUE TO MONITOR THE PATIENT.
--- NOTE | 2018-01-28 09:40 | NUR ---
CLEANED COCCYX CLOSED WOUND WITH NS AND PAT DRY, PLACED HYDROGUARD AND CHANGED DRESSING WITH PHOTOGRAPHIC PROCESS WORKER AND STUDENT NURSE. PATIENT TOLERATED TURNS WELL. WILL CONTINUE TO MONITOR THE PATIENT.
[2018-01-28] MEDS ORDERED: DOCUSATE SODIUM 100 MG GELCAP PO SCH (10:30)
--- NOTE | 2018-01-28 10:46 | NUR ---
ADMINISTERED COLACE. PATIENT HAS STREAKED BLOOD IN HER STOOL AND HAVING DIFFICULTY PUSHING D/T HARD STOOL. PATIENT TOLERATED MED WELL. WILL CONTINUE TO MONITOR THE PATIENT.
[2018-01-28 12:00] VITALS: BP 120/64
[2018-01-28] MEDS: CLINDAMYCIN PHOS 600MG/D5W PM 50 ML IV SCH ×2 (12:03→21:41)
--- NOTE | 2018-01-28 12:16 | NUR ---
ADMINISTERED INSULIN. PATIENT TOLERATED WELL. ADMINISTERED ANTIBIOTICS. IV IS CLEAN, DRY AND INTACT. CHECKED FOR PLACEMENT OF GTUBE WITH SWOOSH AND NO RESIDUAL. GAVE 120ML NEPRO. GAVE 20 ML OF WATER BEFORE AND AFTER. PATIENT TOLERATED WELL. WILL CONTINUE TO MONITOR THE PATIENT.
[2018-01-28] MEDS: THERAHONEY GEL 42.5 GM TP SCH (13:00)
[2018-01-28] MEDS ORDERED: CLINDAMYCIN 600 MG in DEXTROSE 5% 50 ML IV SCH (13:00)
--- NOTE | 2018-01-28 13:08 | NUR ---
REVIEWED OXYGEN ORDER OF COOL AEROSOL AT 28% WITH DR. ADAM ENCISO PER MD VILLA TO CHANGE TO OXYGEN DEVICE KEEPING SATURATIONS GREATER THAN 92%
--- NOTE | 2018-01-28 13:25 | NUR ---
POST HHN THERAPY PLACED ON SUPPLEMENTAL HUMIDIFIED OXYGEN AT 2 LPM VIA NC
--- NOTE | 2018-01-28 14:00 | NUR ---
HD NURSE AT BEDSIDE. WILL CONTINUE TO MONITOR THE PATIENT.
[2018-01-28] MEDS ORDERED: amLODIPine 5 MG TAB GT SCH (14:45)
[2018-01-28] MEDS ORDERED: EPOETIN ALFA 4,000 UNITS/ML VIAL IV SCH (15:00)
--- NOTE | 2018-01-28 15:00 | NUR ---
Machine Tack Puller Notes: I call Patient's son Dougie Culp to discuss patient's status, Confirm and gather patient's information. Per Mr. Culp Patient is living under the care of his sister Omayra Culp and both son and daughter are the healthcare decision makers for patient. Patient has done an advance directive and they can provide and copy for Patient's chart as soon as possible. Per Mr. Clup Patient is also getting services from [facility] and will like to continue and resume their services when patient is discharge from [facility]. Per son Patient has a hospital bed, a wheelchair at home as her special equipment only however she has no O2 and Patient is having difficulty with her breathing lately and would like to have patient be evaluated during hospitalization to confirm if patient is on need or not of 02. Son confirmed that patient will be returning home after discharge with his and sister's assistance with care and transportation. Mr. Culp had no questions and concerns at the time and I thanked Mr. Culp for his information and ended the call
--- NOTE | 2018-01-28 15:44 | NUR ---
PATIENT TOLERATING HD WELL. WILL CONTINUE TO MONITOR THE PATIENT. HD NURSE AT BEDSIDE.
[2018-01-28 16:00] VITALS: BP 127/57
[2018-01-28] MEDS ORDERED: SEVELAMER CARBONATE 800 MG TAB PO SCH (17:00)
--- NOTE | 2018-01-28 17:31 | NUR ---
RECEIVED REPORT FROM DIALYSIS NURSE. PATIENTS TOTAL OUTPUT IS 1.8 L. LAST B/P IS 136/61. ADMINISTERED EPOETIN 8,000 UNITS. PATIENT TOLERATED WELL. IV IS CLEAN, DRY AND INTACT. WILL CONTINUE TO MONITOR THE PATIENT.
--- NOTE | 2018-01-28 17:43 | NUR ---
CHECKED FOR PLACEMENT USING THE SWOOSH, NO RESIDUAL. ADMINISTERED 20ML WATER BEFORE AND AFTER FEEDING. ADMINISTERED GTUBE BOLUS FEEDING OF 120ML OF NEPRO. PATIENT TOLERATING FEEDING WELL. WILL CONTINUE TO MONITOR THE PATIENT. BED IN LOW POSITION. SON AT BEDSIDE.
[2018-01-28] MEDS ORDERED: LEVOFLOXACIN 750 MG/D5W PREMIX 150 ML IV SCH (18:00)
--- NOTE | 2018-01-28 18:30 | NUR ---
PATIENT IS SLEEPING. NO SIGNS OF DISTRESS ON NC 2L. SON AT BEDSIDE. WILL CONTINUE TO MONITOR THE PATIENT.
--- NOTE | 2018-01-28 19:15 | NUR ---
GAVE BEDSIDE REPORT TO JBOSS ARCHITECT NURSE. PATIENT IS IN STABLE CONDITION.
--- NOTE | 2018-01-28 19:16 | NUR ---
RECEIVED BEDSIDE REPORT FROM DAY SHIFT NURSE MAHESH-RN. PATIENT IS SLEEPING WITH DAUGHTER AT BEDSIDE. AOX1-NONVERBAL. ON 2L/NC-NO S/S OF RESPIRATORY DISTRESS OR DISCOMFORT AT THIS TIME. IV ON L HAND 22 G INFUSING NS AT 10ML/HR. IV IS CLEAN, DRY AND INTACT. R ARM IS CONTRACTED AND BLE IS CONTRACTED FROM HX OF A STROKE. R UPPER CHEST CATH FOR DIALYSIS IS CLEAN, DRY AND INTACT. G TUBE IS IN PLACE WITH NO RESIDUAL. G TUBE IS CLEAN, DRY AND INTACT. L HEEL HAS TWO ULCERS. DRESSING IS CLEAN, AND DRY. HEEL PROTECTOR BOOTS ARE IN PLACE. TELE MONITOR IS IN PLACE. PATIENT IS DNR. BED IN LOWEST POSITION, BED BREAKS ON, SIDE RAILS UP, BED ALARM ON. FREQUENT CHECKS NEEDED. DISCUSSED PLAN OF CARE WITH PT AND DAUGHTER, PT UNABLE HOWEVER DAUGHTER VERBALIZED UNDERSTANDING. WHITE BOARD UPDATED. WILL CONTINUE TO MONITOR.
[2018-01-28 20:00] VITALS: BP 144/54
--- NOTE | 2018-01-28 20:00 | NUR ---
VITAL SIGNS TAKEN AND TOLERATED WELL. NEPHRO 120ML GIVEN WITH 20ML BEFORE AND AFTER-NO RESIDUAL. WILL CONTINUE TO MONITOR.
[2018-01-28] MEDS: DOCUSATE SODIUM 100 MG GELCAP PO SCH (21:39)
[2018-01-28] MEDS: SIMVASTATIN 20 MG TAB GT SCH (21:40)
--- NOTE | 2018-01-28 21:50 | NUR ---
SPOKE WITH DR. GAUTHIER ABOUT PT APTT 51.2 CRITICAL VALUE ON 01/25 NOT BEING UPDATED TO GIVE ELIQUIS SAFELY. IS ORDERING APTT COAGULATION BLOOD DRAW STAT. ELIQUIS ON PHYSICIAN HOLD.
--- NOTE | 2018-01-28 22:00 | NUR ---
SCHEDULED MEDICATION GIVEN AND TOLERATED WELL. INSULIN GIVEN PROTOCOL FOR 176 BLOOD GLUCOSE. WILL CONTINUE TO MONITOR.
[2018-01-28] MEDS: NACL 0.9% 1,000 ML IV SCH (22:48)
--- NOTE | 2018-01-28 22:53 | NUR ---
NTS PT AND SENT SPUTUM TO LAB. WILL CONT TO MONITOR PT.
[2018-01-28 23:21] LABS: PROTHROMBIN TIME 12.2 secs (10.8-13.4)
--- NOTE | 2018-01-28 23:30 | NUR ---
LAB CALLED WITH CRITICAL LAB VALUE APTT 58.4, MADE AWARE AND TO CONTINUE HOLD ON ELIQUIS.
[2018-01-29] VITALS: BP 111/47
--- NOTE | 2018-01-29 | NUR ---
VITAL SIGNS TAKEN AND TOLERATED WELL. NEPHRO 120ML GIVEN ALONG WITH 20ML OF WATER BEFORE AND AFTER. NO S/S OF RESPIRATORY DISTRESS OR DISCOMFORT AT THIS TIME. WILL CONTINUE TO MONITOR.
[2018-01-29] MEDS: BLOOD GLUCOSE MONITORING 1 DEV DEV FS SCH ×7 (00:17→23:50)
[2018-01-29] MEDS: INSULIN LISPRO SLIDING SCALE 100 UNITS/ML VIAL SUBQ PRN ×5 (00:21→23:54)
--- NOTE | 2018-01-29 00:25 | NUR ---
BLOOD GLUCOSE 203. INSULIN GIVEN PER PROTOCOL AND TOLERATED WELL. WILL CONTINUE TO MONITOR.
--- NOTE | 2018-01-29 02:00 | NUR ---
PT SLEEPING AT THIS TIME. NO S/S OF RESPIRATORY DISTRESS OR DISCOMFORT NOTED AT THIS TIME. WILL CONTINUE TO MONITOR.
[2018-01-29 04:00] VITALS: BP 104/69
--- NOTE | 2018-01-29 05:00 | NUR ---
GUALBERTO PEARSON AND BEATRIZ ASSISTED PT WITH CHANGE OF CHUX WHEN PT HAD A LARGE BM.
[2018-01-29] MEDS: CLINDAMYCIN PHOS 600MG/D5W PM 50 ML IV SCH ×3 (05:18→20:57)
--- NOTE | 2018-01-29 05:20 | NUR ---
SCHEDULED MEDICATION GIVEN AND TOLERATED WELL. WILL CONTINUE TO MONITOR.
--- NOTE | 2018-01-29 05:30 | NUR ---
BLOOD GLUCOSE 193. INSULIN GIVEN PER PROTOCOL. TOLERATED WELL. WILL CONTINUE TO MONITOR.
[2018-01-29 06:16] LABS: HEPATITIS A ANTIBODY IGM Negative (Negative); HEPATITIS B CORE AB TOTAL Negative (Negative); HEPATITIS B SURFACE ANTIBODY Non Reactive (.); HEPATITIS B SURFACE ANTIGEN Negative (Negative)
--- NOTE | 2018-01-29 06:31 | NUR ---
PT CONTINUES TO SLEEP. NO S/S OF RESPIRATORY DISTRESS OR DISCOMFORT NOTED. WILL CONTINUE TO MONITOR.
[2018-01-29 06:38] LABS: BASOPHILS % (AUTO) 0.3 % (0.0-2.0); EOSINOPHILS # (AUTO) 0.3 K/uL (0-0.4); EOSINOPHILS % (AUTO) 1.7 % (0.0-4.0); HEMATOCRIT 27.6 % (36-48); HEMOGLOBIN 8.4 g/dL (12.0-16.0); LYMPHOCYTES # (AUTO) 2.3 K/uL (2.5-16.5); LYMPHOCYTES % (AUTO) 14.3 % (20.5-51.1); MEAN CORPUSCULAR HEMOGLOBIN 26 pg (27-31); MEAN CORPUSCULAR HGB CONC 31 g/dL (33-37); MEAN CORPUSCULAR VOLUME 85.8 fL (80-94); MONOCYTES # (AUTO) 1.1 K/uL (0.8-1.0); MONOCYTES % (AUTO) 6.6 % (1.7-9.3); NEUTROPHILS # (AUTO) 12.6 K/uL (1.8-7.7); NEUTROPHILS % (AUTO) 77.1 % (42.2-75.2); PLATELET COUNT (AUTO) 383 K/uL (140-450); RED BLOOD CELL COUNT(AUTO) 3.22 MIL/uL (4.20-5.40); RED CELL DISTRIBUTION WIDTH 19.1 % (11.6-13.7); WHITE BLOOD COUNT (AUTO) 16.4 K/uL (4.8-10.8)
[2018-01-29 06:47] LABS: ANION GAP 14.4 (8-16); CARBON DIOXIDE 26.7 mmol/L (21-32); CHLORIDE 99 mmol/L (98-107); GLUCOSE 215 mg/dL (74-106); POTASSIUM 3.1 mmol/L (3.5-5.1); SODIUM SERUM 137 mmol/L (136-145); UREA NITROGEN, BLOOD 34 mg/dL (7-18)
[2018-01-29] MEDS: ALBUTEROL SULFATE/IPRATROPIU 3 ML SOL IH SCH ×3 (06:47→19:15)
[2018-01-29 06:50] LABS: PHOSPHORUS 2.4 mg/dL (2.5-4.9)
--- NOTE | 2018-01-29 06:55 | NUR ---
RT [place] ASSESSED PT. O2SAT AT 100% NO LONGER NEEDING OXYGEN UNLESS O2SATS DROP BELOW 90%.
[2018-01-29] MEDS: PANTOPRAZOLE 40 MG INJ VIAL IV SCH ×2 (06:57→16:46)
--- NOTE | 2018-01-29 07:08 | NUR ---
SCHEDULED MEDICATION GIVEN AND TOLERATED WELL. WILL CONTINUE TO MONITOR.
--- NOTE | 2018-01-29 07:15 | NUR ---
RECEIVED PATIENT REPORT AT BEDSIDE. PATIENT IS SLEEPING BUT AROUSABLE. AOX1-NONVERBAL. PATIENT ON ROOM AIR. NO S/S OF RESPIRATORY DISTRESS OR DISCOMFORT AT THIS TIME. IV ON L HAND 22 G INFUSING NS AT 10ML/HR. IV IS CLEAN, DRY AND INTACT. R ARM IS CONTRACTED AND BLE IS CONTRACTED. R UPPER CHEST CATH FOR DIALYSIS IS CLEAN, DRY AND INTACT. G TUBE IS IN PLACE WITH NO RESIDUAL. G TUBE IS CLEAN, DRY AND INTACT. L HEEL HAS TWO ULCERS. DRESSING IS CLEAN, AND DRY. HEEL PROTECTOR BOOTS ARE IN PLACE. TELE MONITOR IS IN PLACE. BED LOWERED WITH CALL LIGHT WITHIN REACH. WILL CONTINUE TO MONITOR
--- NOTE | 2018-01-29 07:38 | NUR ---
ENDORSED TO DAY SHIFT NURSE KOBI FOR CONTINUITY OF CARE.
--- NOTE | 2018-01-29 08:30 | NUR ---
ADMINISTERED SCHEDULED MEDS AND FEEDING VIA G-TUBE. PATIENT TOLERATED WELL. PATIENT'S DAUGHTER PRESENT AT BEDSIDE. ORAL CARE GIVEN
[2018-01-29 08:37] VITALS: BP 119/48
[2018-01-29] MEDS: CALCIUM ACETATE 667 MG TAB PO SCH (08:46)
[2018-01-29] MEDS: LACTOBACILLUS RHAMNOSUS GG 1 EACH CAP GT SCH (08:46)
[2018-01-29] MEDS: ISOSORBIDE DINITRATE 10 MG TAB PO SCH ×2 (08:47→20:58)
[2018-01-29] MEDS: CARVEDILOL 3.125 MG TAB PO SCH ×2 (08:47→21:00)
[2018-01-29] MEDS: VIT-B COMP/VIT-C/FOLIC ACID 1 TAB GT SCH (08:47)
[2018-01-29] MEDS: FERROUS SULFATE 300 MG/5 ML UDC PO SCH ×2 (08:48→20:57)
[2018-01-29] MEDS: SEVELAMER CARBONATE 800 MG TAB PO SCH ×4 (08:51→17:00)
[2018-01-29] MEDS: INSULIN LANTUS 100 UNITS/ML 10 ML VIAL SUBQ SCH (08:53)
[2018-01-29] MEDS: DOCUSATE SODIUM 100 MG GELCAP PO SCH (09:00)
[2018-01-29] MEDS: PATIENTS OWN TABLET PO SCH ×3 (09:00→16:46)
[2018-01-29] MEDS: APIXABAN 2.5 MG TAB PO SCH ×2 (09:00→21:00)
[2018-01-29] MEDS ORDERED: amLODIPine 5 MG TAB GT SCH (09:00)
[2018-01-29] MEDS: HYDRAGUARD CREAM TP SCH ×3 (09:00→21:10)
--- NOTE | 2018-01-29 09:45 | NUR ---
DR CHIN PRESENT IN THE THE ROOM, CHANGING PATIENT'S LEFT FOOT WOUND DRESSING. PATIENT'S DAUGHTER PRESENT IN THE ROOM
--- NOTE | 2018-01-29 11:06 | NUR ---
Diabetes Physician Note: I faxed patient's face sheet and MD's order for LTAC to [facility], fax . I informed Belle from [facility] of evaluation order and printed clinical information for Belle to review.
[2018-01-29] MEDS ORDERED: POTASSIUM CHLORIDE 20% 40 MEQ/15 ML UDC GT SCH (11:23)
[2018-01-29 12:00] VITALS: BP 107/51
[2018-01-29] MEDS: THERAHONEY GEL 42.5 GM TP SCH (13:00)
--- NOTE | 2018-01-29 13:08 | NUR ---
SPOKE TO ARTURO MORA AND INFORMED HER ABOUT THE HEMODIALYSIS ORDER FOR THE PATIENT TOMORROW.
[2018-01-29] MEDS ORDERED: POTASSIUM CHLORIDE 20% 40 MEQ/15 ML UDC GT ONE (14:25)
--- NOTE | 2018-01-29 15:30 | NUR ---
Timber Harvester Operator Notes: Per MD Perla patient's daughter and Son met to discuss recommendations for Acute care. Family declined Acute care for Patient at this time. These Medical Insurance Claims Specialist notified Belle coleman Jak via telephonic call at .
[2018-01-29 16:00] VITALS: BP 119/49
--- NOTE | 2018-01-29 16:16 | NUR ---
01/29/18 RD FOLLOW UP COMPLETED PLEASE REFER TO NUTRITION ASSESSMENT UNDER CARE ACTIVITY FOR ESTIMATED NUTRITIONAL NEEDS. 1. RECOMMEND NEPHRO/NOVASOURCE 150 ML Q4H TOLERATED 2. RD TO FOLLOW-UP 2-3 DAYS, HIGH RISK SHIRA PEREZ, RD
--- NOTE | 2018-01-29 16:30 | NUR ---
PATIENT HAD A BM. PATIENT GIVEN PERINEAL CARE. PATIENT TURNED AND REPOSITIONED FOR COMFORT. NO S/S OF DISTRESS NOTED
--- NOTE | 2018-01-29 19:29 | NUR ---
PATIENT REPORT GIVEN AT BEDSIDE. PATIENT ENDORSED IN STABLE CONDITION
--- NOTE | 2018-01-29 19:30 | NUR ---
RECEIVED BEDSIDE REPORT FROM DAY SHIFT NURSE MEHRDAD-RN. PATIENT IS SLEEPING, AOX1-NONVERBAL. ON ROOM AIR, NO S/S OF RESPIRATORY DISTRESS OR DISCOMFORT AT THIS TIME. IV ON L HAND 22 G AND RIGHT FB 24G INFUSING NS AT 10ML/HR. IV IS CLEAN, DRY AND INTACT. R ARM IS CONTRACTED AND BLE IS CONTRACTED FROM HX OF A STROKE. R UPPER CHEST CATH FOR DIALYSIS IS CLEAN, DRY AND INTACT. G TUBE IS IN PLACE WITH NO RESIDUAL. G TUBE IS CLEAN, DRY AND INTACT. L HEEL HAS TWO ULCERS. DRESSING IS CLEAN, AND DRY. HEEL PROTECTOR BOOTS ARE IN PLACE. TELE MONITOR IS IN PLACE. PATIENT IS DNR. BED IN LOWEST POSITION, BED BREAKS ON, SIDE RAILS UP, BED ALARM ON. FREQUENT CHECKS NEEDED. DISCUSSED PLAN OF CARE WITH PT HOWEVER DAUGHTER VERBALIZED UNDERSTANDING. WHITE BOARD UPDATED. WILL CONTINUE TO MONITOR.
[2018-01-29 20:00] VITALS: BP 112/49
--- NOTE | 2018-01-29 20:00 | NUR ---
VITAL SIGNS TAKEN AND TOLERATED WELL. BLOOD GLUCOSE 221, WILL ADMINISTER INSULIN PER PROTOCOL. WILL CONTINUE TO MONITOR.
--- NOTE | 2018-01-29 20:01 | NUR ---
G-TUBE FEEDING NEPHRO WITH CARBSTEADY 150ML GIVEN WITH 20ML OF WATER BEFORE AND AFTER. 10ML RESIDUAL. PT TOLERATED WELL.
--- NOTE | 2018-01-29 20:45 | NUR ---
SPOKE WITH DR. GAUTHIER ABOUT PT DIET ON FILE CARDIAC WHEN PT IS STRICTLY G-TUBE FEED ONLY AND ABSOLUTELY NOTHING BY MOUTH. ALSO MENTIONED THE DISCREPANCY ON MEDICATION ORDERED PO WHEN AGAIN PT HAS G-TUBE. COLACE WAS CHANGED FROM GEL CAPSULE TO LIQUID. LASTLY, MENTIONED ELIQUIS MEDICATION AND IF HE WANTED A CURRENT COAGULATION LAB TEST BEFORE ADMINISTERING MEDICATION. ALSO PUT IN LAB COAGULATION ORDER.
[2018-01-29] MEDS: DOCUSATE 100 MG/10 ML UDC GT SCH (20:57)
[2018-01-29] MEDS: SIMVASTATIN 20 MG TAB GT SCH (20:58)
--- NOTE | 2018-01-29 21:00 | NUR ---
SCHEDULED MEDICATION GIVEN VIA G-TUBE AND TOLERATED WELL.
--- NOTE | 2018-01-29 21:01 | NUR ---
COREG NOT GIVEN DUE TO DECREASE IN BLOOD PRESSURE. WILL CONTINUE TO MONITOR.
--- NOTE | 2018-01-29 21:20 | NUR ---
INSULIN GIVEN PER PROTOCOL FOR BLOOD GLUCOSE LEVEL 221. PT TOLERATED WELL. WILL CONTINUE TO MONITOR.
[2018-01-29 21:56] LABS: PROTHROMBIN TIME 11.9 secs (10.8-13.4)
--- NOTE | 2018-01-29 22:16 | NUR ---
ELIQUIS NOT GIVEN DUE TO APTT 48.7 HIGH LAB VALUE. WILL CONTINUE TO MONITOR.
[2018-01-29] MEDS: NACL 0.9% 1,000 ML IV SCH (22:48)
--- NOTE | 2018-01-29 23:55 | NUR ---
BLOOD GLUCOSE 225. INSULIN GIVEN PER PROTOCOL.
[2018-01-30] VITALS: BP 109/44
--- NOTE | 2018-01-30 | NUR ---
VITAL SIGNS TAKEN AND TOLERATED WELL. G-TUBE FEEDING NEPHRO 150ML GIVEN WITH 20ML OF WATER BEFORE AND AFTER. WILL CONTINUE TO MONITOR.
--- NOTE | 2018-01-30 02:27 | NUR ---
PT CONTINUES TO SLEEP. NO S/S OF RESPIRATORY DISTRESS OR DISCOMFORT NOTED AT THIS TIME. WILL CONTINUE TO MONITOR.
[2018-01-30 04:00] VITALS: BP 125/49
--- NOTE | 2018-01-30 04:00 | NUR ---
BLOOD GLUCOSE 176, WILL GIVE INSULIN PER PROTOCOL. VITAL SIGNS TAKEN AND TOLERATED WELL. G-TUBE FEEDING NEPHRO 150ML GIVEN WITH 20ML OF WATER BEFORE AND AFTER. WILL CONTINUE TO MONITOR.
[2018-01-30] MEDS: BLOOD GLUCOSE MONITORING 1 DEV DEV FS SCH ×5 (04:07→20:31)
[2018-01-30] MEDS: CLINDAMYCIN PHOS 600MG/D5W PM 50 ML IV SCH ×3 (04:41→20:42)
--- NOTE | 2018-01-30 04:45 | NUR ---
SCHEDULED MEDICATION GIVEN. PT CONTINUES TO SLEEP. NO S/S OF RESPIRATORY DISTRESS OR DISCOMFORT NOTED. WILL CONTINUE AT THIS TIME.
[2018-01-30] MEDS: INSULIN LISPRO SLIDING SCALE 100 UNITS/ML VIAL SUBQ PRN ×4 (04:47→20:44)
[2018-01-30] MEDS: PANTOPRAZOLE 40 MG INJ VIAL IV SCH ×2 (06:34→16:30)
--- NOTE | 2018-01-30 06:35 | NUR ---
SCHEDULED MEDICATION GIVEN AND TOLERATED WELL. NO S/S OF RESPIRATORY DISTRESS OR DISCOMFORT. WILL CONTINUE TO MONITOR.
[2018-01-30 06:38] LABS: BASOPHILS % (AUTO) 0.2 % (0.0-2.0); EOSINOPHILS # (AUTO) 0.3 K/uL (0-0.4); EOSINOPHILS % (AUTO) 1.5 % (0.0-4.0); HEMATOCRIT 29.7 % (36-48); LYMPHOCYTES # (AUTO) 2.7 K/uL (2.5-16.5); LYMPHOCYTES % (AUTO) 14.5 % (20.5-51.1); MEAN CORPUSCULAR HEMOGLOBIN 26 pg (27-31); MEAN CORPUSCULAR HGB CONC 30 g/dL (33-37); MEAN CORPUSCULAR VOLUME 85.3 fL (80-94); MONOCYTES # (AUTO) 1.5 K/uL (0.8-1.0); NEUTROPHILS # (AUTO) 13.9 K/uL (1.8-7.7); NEUTROPHILS % (AUTO) 75.8 % (42.2-75.2); PLATELET COUNT (AUTO) 529 K/uL (140-450); RED BLOOD CELL COUNT(AUTO) 3.48 MIL/uL (4.20-5.40); RED CELL DISTRIBUTION WIDTH 19.3 % (11.6-13.7); WHITE BLOOD COUNT (AUTO) 18.3 K/uL (4.8-10.8)
[2018-01-30] MEDS: ALBUTEROL SULFATE/IPRATROPIU 3 ML SOL IH SCH ×3 (06:43→19:46)
[2018-01-30 06:47] LABS: CARBON DIOXIDE 23.9 mmol/L (21-32); CHLORIDE 99 mmol/L (98-107); GLUCOSE 250 mg/dL (74-106); POTASSIUM 3.9 mmol/L (3.5-5.1); SODIUM SERUM 136 mmol/L (136-145)
--- NOTE | 2018-01-30 06:52 | NUR ---
RECEIVED PATIENT ON ROOM AIR, O2 SAT 93%. SCHEDULED BREATHING TREATMENT ADMINISTERED. TOLERATED TX WELL, NO ADVERSE SIDE EFFECTS. NO RESPIRATORY DISTRESS NOTED AT THIS TIME. WILL CONTINUE TO MONITOR.
[2018-01-30 06:56] LABS: UREA NITROGEN, BLOOD 63 mg/dL (7-18)
[2018-01-30 06:58] LABS: CREATININE 4.7 mg/dL (0.6-1.3)
--- NOTE | 2018-01-30 07:03 | NUR ---
CRITICAL LAB: CREAT. 4.7 AND BUN 63. SPOKE WITH DR. AMIN AND HE SAID "THESE ARE EXPECTED VALUES SINCE SHE IS A DIALYSIS PT" NO NEW ORDERS WERE MADE.
--- NOTE | 2018-01-30 07:25 | NUR ---
ENDORSED PT CARE TO DAY SHIFT NURSE KOBI FOR CONTINUITY OF CARE.
[2018-01-30 08:00] VITALS: BP 117/42
--- NOTE | 2018-01-30 08:00 | NUR ---
SCHEDULE MEDICATIONS AND FEEDING ADMINISTERED VIA G-TUBE. NO RESIDUALS NOTED. PATIENT TOLERATED WELL
[2018-01-30] MEDS: LACTOBACILLUS RHAMNOSUS GG 1 EACH CAP GT SCH (08:16)
[2018-01-30] MEDS: DOCUSATE 100 MG/10 ML UDC GT SCH ×3 (08:16→21:00)
[2018-01-30] MEDS: VIT-B COMP/VIT-C/FOLIC ACID 1 TAB GT SCH (08:16)
[2018-01-30] MEDS: FERROUS SULFATE 300 MG/5 ML UDC PO SCH ×2 (08:16→20:45)
[2018-01-30] MEDS: APIXABAN 2.5 MG TAB PO SCH ×2 (08:17→20:43)
[2018-01-30] MEDS: PATIENTS OWN TABLET PO SCH ×3 (08:19→16:31)
[2018-01-30] MEDS: INSULIN LANTUS 100 UNITS/ML 10 ML VIAL SUBQ SCH (08:23)
--- NOTE | 2018-01-30 08:27 | NUR ---
MADE DR LUI AWARE OF PATIENT'S COAGULATION AND PLATELET LEVELS. PER DR LUI, OK TO ADMINISTER SCHEDULED ELIQUIS
[2018-01-30 08:39] LABS: MAGNESIUM 2.5 mg/dL (1.8-2.4); PHOSPHORUS 1.7 mg/dL (2.5-4.9)
--- NOTE | 2018-01-30 08:40 | NUR ---
NO RESIDUAL, G-TUBE PLACEMENT CHECKED, DUE MEDICATION GIVEN, 150 ML NEPHRO GIVEN AND 20ML OF WATER BEFORE AND AFTER VIA G-TUBE. REPOSITIONED PATIENT WITH THE MACHINE FIXER, BILATERAL HEEL PROTECTOR BOOTS ON, HEAD OF BED ELEVATED, SAFETY MEASURE ENSURED, WILL CONTINUE TO MONITOR Addendum: 01/31/18 at 0549 by Dorcas Valdez RN WRONG TIME
[2018-01-30] MEDS: HYDRAGUARD CREAM TP SCH ×3 (09:00→20:46)
[2018-01-30] MEDS: CARVEDILOL 3.125 MG TAB PO SCH ×2 (09:00→20:42)
[2018-01-30] MEDS: ISOSORBIDE DINITRATE 10 MG TAB PO SCH ×2 (09:00→20:45)
[2018-01-30 12:00] VITALS: BP 125/62
[2018-01-30] MEDS: THERAHONEY GEL 42.5 GM TP SCH (13:00)
--- NOTE | 2018-01-30 13:10 | NUR ---
HEMODIALYSIS DONE. 2 LITERS OUTPUT. BP 122/59. HR 92. PT AWAKE. NO S/S OF DISTRESS NOTED. WILL CONTINUE TO MONITOR.
[2018-01-30] MEDS: EPOETIN ALFA 4,000 UNITS/ML VIAL IV SCH (13:21)
--- NOTE | 2018-01-30 15:20 | NUR ---
WOUND DRESSING CHANGE PERFORMED PER WOUND CARE NURSES RECOMMENDATIONS. PT TOLERATED WELL. PT TURNED AND REPOSITIONED FOR COMFORT.
[2018-01-30 16:00] VITALS: BP 109/44
[2018-01-30] MEDS: LEVOFLOXACIN 500 MG/D5W PREMIX 100 ML IV SCH (16:54)
--- NOTE | 2018-01-30 19:30 | NUR ---
PATIENT REPORT GIVEN AT BEDSIDE. PATIENT ENDORSED IN STABLE CONDITION
--- NOTE | 2018-01-30 19:35 | NUR ---
RECEIVED REPORT FROM DAY SHIFT, PATIENT RESTING IN BED, NON-VERBAL, NO S/S OF DISTRESS NOTED. DIALYSIS ACCESS DRESSING DRY AND INTACT TO THE RIGHT UPPER CHEST, IV TO THE RT FOREARM, PATENT AND INTACT. G-TUBE IN PLACE, PLACEMENT CHECKED AND PATENT. DRESSING ON THE LEFT FOOT DRY AND INTACT. BILATERAL HEEL PROTECTOR BOOTS ON, CALL LIGHT WITHIN REACH, HEAD OF BED ELEVATED, SAFETY MEASURE ENSURED, WILL CONTINUE TO MONITOR.
[2018-01-30 20:00] VITALS: BP 118/61
--- NOTE | 2018-01-30 20:40 | NUR ---
NO RESIDUAL, G-TUBE PLACEMENT CHECKED, DUE MEDICATION GIVEN, 150 ML NEPHRO GIVEN AND 20ML OF WATER BEFORE AND AFTER VIA G-TUBE. REPOSITIONED PATIENT WITH THE STEAM BONE PRESS TENDER, BILATERAL HEEL PROTECTOR BOOTS ON, HEAD OF BED ELEVATED, SAFETY MEASURE ENSURED, WILL CONTINUE TO MONITOR
[2018-01-30] MEDS: SIMVASTATIN 20 MG TAB GT SCH (20:42)
[2018-01-30] MEDS ORDERED: VANCOMYCIN PER PHARMACY MC PRN (21:00)
--- NOTE | 2018-01-30 21:31 | NUR ---
DR. GLASS CAME AND EXAMINED PATIENT AT THE BEDSIDE, DR. GLASS ORDERED LAB TO RULE OUT C.DIFF, AND MADE DR. GLASS AWARE THAT PATIENT IS ON COLACE, BUT DR. GLASS STILL WANT THE STOOL COLLECTED BECAUSE PATIENT'S WBC INCREASED FOR SOME REASON AND WANTS TO R/O C.DIFF.
--- NOTE | 2018-01-30 21:40 | NUR ---
STOOL COLLECTED, CLEANED THE PATIENT AND REPOSITIONED PATIENT WITH THE RUBBER MOLDER, HEAD OF BED ELEVATED, HEEL PROTECTOR IN PLACE, SAFETY MEASURE ENSURED, WILL CONTINUE TO MONITOR.
[2018-01-30] MEDS ORDERED: VANCOMYCIN 1GM/DEXT 5% PREMIX 200 ML IV SCH (22:00)
--- NOTE | 2018-01-30 22:30 | NUR ---
INFORMED DR. GLASS THE BLOOD CULTURE IS COLLECTED BY LEAF TIER. DR. GLASS SAID OKAY TO EDIT THE ORDER
[2018-01-30] MEDS ORDERED: VANCOMYCIN 1,000 MG VIAL ONE (22:44)
--- NOTE | 2018-01-30 23:02 | NUR ---
WAITING FOR BLACKTOP SPREADER TO COME AND DRAW BLOOD CULTURE, VANCOMYCIN WILL START AFTER THE BLOOD IS COLLECTED.
[2018-01-30] MEDS: NACL 0.9% 1,000 ML IV SCH (23:14)
--- NOTE | 2018-01-30 23:19 | NUR ---
VANCOMYCIN STARTED, PATIENT TOLERATED WELL. REPOSITIONED PATIENT WITH THE NYLON MACHINE OPERATOR, HEAD OF BED ELEVATED, HEEL PROTECTOR BOOTS ON, CALL LIGHT WITHIN REACH, SAFETY MEASURE ENSURED, WILL CONTINUE TO MONITOR.
[2018-01-31] VITALS: BP 116/58
[2018-01-31] MEDS: BLOOD GLUCOSE MONITORING 1 DEV DEV FS SCH ×7 (00:10→23:48)
--- NOTE | 2018-01-31 00:10 | NUR ---
NO RESIDUAL, G-TUBE PLACEMENT CHECKED, DUE MEDICATION GIVEN, 150 ML NEPHRO GIVEN AND 20ML OF WATER BEFORE AND AFTER VIA G-TUBE. G-TUBE DRESSING CHANGED, G-TUBE SITE CLEAN AND INTACT. REPOSITIONED PATIENT WITH THE GLAZE MIXER, BILATERAL HEEL PROTECTOR BOOTS ON, HEAD OF BED ELEVATED, SAFETY MEASURE ENSURED, WILL CONTINUE TO MONITOR
[2018-01-31] MEDS: INSULIN LISPRO SLIDING SCALE 100 UNITS/ML VIAL SUBQ PRN ×5 (00:12→23:49)
--- NOTE | 2018-01-31 02:52 | NUR ---
NO CHANGE IN CONDITION, PATIENT IS SLEEPING, NO S/S OF DISTRESS NOTED, EASY TO AROUSE, REPOSITIONED PATIENT WITH THE CUSTOMER RETENTION REPRESENTATIVE, BILATERAL HEEL PROTECTOR BOOTS ON, CALL LIGHT WITHIN REACH, HEAD OF BED ELEVATED, SAFETY MEASURE ENSURED, WILL CONTINUE TO MONITOR.
[2018-01-31 04:00] VITALS: BP 129/64
--- NOTE | 2018-01-31 04:34 | NUR ---
VITAL SIGNS STABLE, NO RESIDUAL, G-TUBE PLACEMENT CHECKED, 150 ML NEPHRO GIVEN AND 20ML OF WATER BEFORE AND AFTER VIA G-TUBE. REPOSITIONED PATIENT WITH THE BOBBIN SORTER, BILATERAL HEEL PROTECTOR BOOTS ON, HEAD OF BED ELEVATED, SAFETY MEASURE ENSURED, WILL CONTINUE TO MONITOR.
[2018-01-31] MEDS: PANTOPRAZOLE 40 MG INJ VIAL IV SCH ×2 (06:48→17:21)
--- NOTE | 2018-01-31 06:53 | NUR ---
DUE MEDICATION GIVEN, PATIENT TOLERATED WELL. NO S/S OF DISTRESS NOTED, CALL LIGHT WITHIN REACH, SAFETY MEASURE ENSURED, WILL CONTINUE TO MONITOR.
[2018-01-31] MEDS: ALBUTEROL SULFATE/IPRATROPIU 3 ML SOL IH SCH ×3 (07:36→20:20)
--- NOTE | 2018-01-31 07:36 | NUR ---
ENDORSED PLAN OF CARE TO DAY SHIFT RN, PATIENT RESTING IN BED, IN STABLE CONDITION.
--- NOTE | 2018-01-31 07:37 | NUR ---
RECEIVED REPORT FROM THE BAKER BREAD NURSE AT BEDSIDE FOR CONTINUITY OF CARE. PT IS AWAKE, APHASIC. BEDBOUND. PT HAS A GTUBE. FEEDING Q4H. SKIN: SACRAL PU- HEALED. OPTIFOAM FOR PROTECTION, L HEEL AND ANKLE STAGE 4 PU, R FOOT DTI DU, SARA. PT HAD DIALYSIS YESTERDAY. 2L OUTPUT. IV R FA 24G SL. DIALYSIS PORT ON R UPPER CHEST. PER BAKER BREAD NURSE DO NOT USE L ARM D/T HAVING A SHUNT-NON USEABLE. C DIFF PENDING. UPDATED THE BOARD. V/S WITHIN NORMAL RANGE. NO SIGNS OF DISTRESS. WILL CONTINUE TO MONITOR PT.
[2018-01-31 07:49] LABS: BASOPHILS # (AUTO) 0.1 K/uL (0.00-0.22); BASOPHILS % (AUTO) 0.7 % (0.0-2.0); EOSINOPHILS # (AUTO) 0.3 K/uL (0-0.4); EOSINOPHILS % (AUTO) 2.4 % (0.0-4.0); HEMATOCRIT 28.1 % (36-48); HEMOGLOBIN 8.7 g/dL (12.0-16.0); LYMPHOCYTES # (AUTO) 2.2 K/uL (2.5-16.5); LYMPHOCYTES % (AUTO) 16.3 % (20.5-51.1); MEAN CORPUSCULAR HEMOGLOBIN 27 pg (27-31); MEAN CORPUSCULAR HGB CONC 31 g/dL (33-37); MEAN CORPUSCULAR VOLUME 86.5 fL (80-94); MONOCYTES % (AUTO) 7.8 % (1.7-9.3); NEUTROPHILS # (AUTO) 9.6 K/uL (1.8-7.7); NEUTROPHILS % (AUTO) 72.8 % (42.2-75.2); PLATELET COUNT (AUTO) 462 K/uL (140-450); RED BLOOD CELL COUNT(AUTO) 3.25 MIL/uL (4.20-5.40); RED CELL DISTRIBUTION WIDTH 19.5 % (11.6-13.7); WHITE BLOOD COUNT (AUTO) 13.2 K/uL (4.8-10.8)
[2018-01-31 07:55] LABS: PHOSPHORUS 1.7 mg/dL (2.5-4.9)
[2018-01-31 08:00] VITALS: BP 126/55
[2018-01-31 08:46] LABS: ANION GAP 16.2 (8-16); CARBON DIOXIDE 26.6 mmol/L (21-32); CHLORIDE 97 mmol/L (98-107); CREATININE 3.3 mg/dL (0.6-1.3); GLUCOSE 232 mg/dL (74-106); POTASSIUM 3.8 mmol/L (3.5-5.1); SODIUM SERUM 136 mmol/L (136-145); UREA NITROGEN, BLOOD 39 mg/dL (7-18)
[2018-01-31] MEDS: LACTOBACILLUS RHAMNOSUS GG 1 EACH CAP GT SCH (09:45)
[2018-01-31] MEDS: FERROUS SULFATE 300 MG/5 ML UDC PO SCH ×2 (09:45→20:31)
[2018-01-31] MEDS: DOCUSATE 100 MG/10 ML UDC GT SCH ×2 (09:45→20:30)
[2018-01-31] MEDS: CARVEDILOL 3.125 MG TAB PO SCH ×2 (09:46→20:31)
[2018-01-31] MEDS: VIT-B COMP/VIT-C/FOLIC ACID 1 TAB GT SCH (09:46)
[2018-01-31] MEDS: metroNIDAZOLE 500 MG TAB GT SCH ×3 (09:46→17:21)
[2018-01-31] MEDS: ISOSORBIDE DINITRATE 10 MG TAB PO SCH ×2 (09:47→20:31)
[2018-01-31] MEDS: PATIENTS OWN TABLET PO SCH ×3 (09:48→17:23)
[2018-01-31] MEDS: APIXABAN 2.5 MG TAB PO SCH ×2 (09:50→20:33)
[2018-01-31] MEDS: INSULIN LANTUS 100 UNITS/ML 10 ML VIAL SUBQ SCH (09:50)
--- NOTE | 2018-01-31 10:03 | NUR ---
ADMINISTERED MORNING MEDS AND BOLUS OF HER NEPRO. CHECKED FOR PLACEMENT, RESIDUAL (0), AND PATENCY. TOTAL FLUSHED: 100ML H2O. PT TOLERATED WELL. WILL CONTINUE TO MONITOR PT.
--- NOTE | 2018-01-31 10:24 | NUR ---
01/31/18 RD FOLLOW UP COMPLETED PLEASE REFER TO NUTRITION PROGRESS NOTE UNDER CARE ACTIVITY FOR ESTIMATED NUTRITION NEEDS. NUTRITION RECOMMENDATIONS: 1.CONTINUE NEPRO 150 ML Q4H G TUBE BOLUS FEEDING + 20 ML OF FREE WATER FLUSH BEFORE AND AFTER BOLUS FEED (240 ML/DAY). --PLEASE CONSIDER REMOVING CARDIAC DIET FROM DIET ORDER PT IS ONLY ON BOLUS G TUBE FEEDING. --TUBE FEEDING REGIME IS MEETING 100% OF ESTIMATED NUTRITION NEEDS. 2. CONSIDER ADJUSTING INSULIN LEVELS RN REPORT SPIKED BLOOD SUGAR AFTER ADMINISTERING BOLUS FEEDS. --NOTE NEPRO IS CARB STEADY, WHICH SHOULD HELP TO STABILIZE BLOOD SUGAR LEVELS. 3. RD TO FOLLOW-UP 2-3 DAYS, HIGH RISK. MARK TOLENTINO, [place]
[2018-01-31 12:00] VITALS: BP 106/51
[2018-01-31] MEDS: HYDRAGUARD CREAM TP SCH ×3 (12:13→20:32)
[2018-01-31] MEDS: THERAHONEY GEL 42.5 GM TP SCH (13:15)
--- NOTE | 2018-01-31 13:15 | NUR ---
ADMINISTERED SCHEDULED MEDS AND PERFORMED WOUND CARE. ALL DRESSINGS CHANGED. PT TOLERATED WELL. WILL CONTINUE TO MONITOR PT.
[2018-01-31 16:09] VITALS: BP 126/58
--- NOTE | 2018-01-31 16:50 | NUR ---
LAB CALLED WITH CRITICAL LAB: POSITIVE FOR C DIFF.
[2018-01-31] MEDS: SODIUM PHOS / POTASSIUM PHOS 1 PKT PDR PO SCH (17:22)
--- NOTE | 2018-01-31 17:30 | NUR ---
ADMINISTERED SCHEDULED MEDICATIONS. ROLLER STOPPED BY. PT DOING WELL. NOTIFIED HIM OF C-DIFF. WILL CONTINUE TO MONITOR PT.
--- NOTE | 2018-01-31 19:29 | NUR ---
ENDORSED PT TO THE FITNESS MANAGER NURSE AT BEDSIDE FOR CONTINUITY OF CARE. PT IS IN STABLE CONDITION.
--- NOTE | 2018-01-31 19:30 | NUR ---
RECEIVED REPORT FROM DAY SHIFT, PATIENT RESTING IN BED, NON-VERBAL, NO S/S OF DISTRESS NOTED, ON ROOM AIR. DAUGHTER IS AT THE BEDSIDE. DIALYSIS ACCESS DRESSING DRY AND INTACT TO THE RIGHT UPPER CHEST, IV TO THE RT FOREARM, PATENT AND INTACT. G-TUBE IN PLACE, PLACEMENT CHECKED AND PATENT. DRESSING ON THE LEFT FOOT DRY AND INTACT. BILATERAL HEEL PROTECTOR BOOTS ON, CALL LIGHT WITHIN REACH, HEAD OF BED ELEVATED, WOUND BED IS ACTIVATED, SAFETY MEASURE ENSURED, WILL CONTINUE TO MONITOR.
[2018-01-31 20:00] VITALS: BP 139/60
[2018-01-31] MEDS: SIMVASTATIN 20 MG TAB GT SCH (20:31)
--- NOTE | 2018-01-31 20:35 | NUR ---
NO RESIDUAL, G-TUBE PLACEMENT CHECKED, DUE MEDICATION GIVEN, 150 ML NEPHRO GIVEN AND 20ML OF WATER BEFORE AND AFTER VIA G-TUBE. REPOSITIONED PATIENT WITH THE THERAPY COORDINATOR, BILATERAL HEEL PROTECTOR BOOTS ON, HEAD OF BED ELEVATED, SAFETY MEASURE ENSURED, WILL CONTINUE TO MONITOR
--- NOTE | 2018-01-31 22:05 | NUR ---
PATIENT MADE BOWEL MOVEMENT, CLEANED AND REPOSITIONED PATIENT WITH THE TEACHER MUSIC, CALL LIGHT WITHIN REACH, HEAD OF BED ELEVATED, SAFETY MEASURE ENSURED, WILL CONTINUE TO MONITOR.
[2018-01-31] MEDS: NACL 0.9% 1,000 ML IV SCH (22:48)
[2018-02-01] VITALS: BP 129/60
--- NOTE | 2018-02-01 00:34 | NUR ---
NO RESIDUAL, G-TUBE PLACEMENT CHECKED, 150 ML NEPHRO GIVEN AND 20ML OF WATER BEFORE AND AFTER VIA G-TUBE. G-TUBE DRESSING CHANGED, G-TUBE SITE CLEAN AND INTACT. REPOSITIONED PATIENT WITH THE WATCH ENGINEER, BILATERAL HEEL PROTECTOR BOOTS ON, HEAD OF BED ELEVATED, SAFETY MEASURE ENSURED, WILL CONTINUE TO MONITOR
--- NOTE | 2018-02-01 02:14 | NUR ---
PATIENT IS SLEEPING, NO S/S OF DISTRESS NOTED, RESPIRATION EVEN AND UNLABORED, ON ROOM AIR. REPOSITIONED PATIENT WITH BUILDING PERFORMANCE CONSULTANT, CALL LIGHT WITHIN REACH, SAFETY MEASURE ENSURED, WILL CONTINUE TO MONITOR.
[2018-02-01] MEDS: BLOOD GLUCOSE MONITORING 1 DEV DEV FS SCH ×5 (03:33→20:00)
[2018-02-01] MEDS: INSULIN LISPRO SLIDING SCALE 100 UNITS/ML VIAL SUBQ PRN ×4 (03:34→21:11)
[2018-02-01 03:48] VITALS: BP 134/67
--- NOTE | 2018-02-01 03:50 | NUR ---
NO RESIDUAL, G-TUBE PLACEMENT CHECKED, 150 ML NEPHRO GIVEN AND 20ML OF WATER BEFORE AND AFTER VIA G-TUBE. REPOSITIONED PATIENT WITH THE DIRECTOR MARKETING, BILATERAL HEEL PROTECTOR BOOTS ON, HEAD OF BED ELEVATED, SAFETY MEASURE ENSURED, WOUND BED IS ACTIVATED, WILL CONTINUE TO MONITOR
[2018-02-01] MEDS: PANTOPRAZOLE 40 MG INJ VIAL IV SCH ×2 (06:40→18:05)
--- NOTE | 2018-02-01 06:52 | NUR ---
DUE MEDICATION GIVEN, PATIENT TOLERATED WELL. NO S/S OF DISTRESS NOTED, CALL LIGHT WITHIN REACH, HEAD OF BED ELEVATED, HEEL PROTECTOR BOOTS ON, WOUND BED ACTIVATED. WILL CONTINUE TO MONITOR.
--- NOTE | 2018-02-01 07:20 | NUR ---
RECEIVED REPORT FROM NIGHTSHIFT NURSE AT BEDSIDE. PATIENT IS AWAKE AT THIS TIME BUT NONVERBAL. NO DISTRESS NOTED. PATIENT IS ON ROOM AIR. DIALYSIS ACCESS DRESSING DRY AND INTACT TO THE RIGHT UPPER CHEST. G-TUBE IS PATENT AT THIS TIME. DRESSING ON THE LEFT FOOT DRY AND INTACT. WILL CHANGE LATER TODAY. BILATERAL HEEL PROTECTOR BOOTS ON. PLACED CALL LIGHT WITHIN REACH OF PATIENT. UPDATED BOARD IN PATIENT'S ROOM. APPROPRIATE SIGNS PLACED OUTSIDE OF PATIENT'S ROOM. WILL CONTINUE TO MONITOR PATIENT.
[2018-02-01 07:21] LABS: BASOPHILS # (AUTO) 0.1 K/uL (0.00-0.22); BASOPHILS % (AUTO) 0.5 % (0.0-2.0); EOSINOPHILS # (AUTO) 0.3 K/uL (0-0.4); EOSINOPHILS % (AUTO) 2.4 % (0.0-4.0); HEMATOCRIT 29.2 % (36-48); HEMOGLOBIN 8.9 g/dL (12.0-16.0); LYMPHOCYTES # (AUTO) 2.5 K/uL (2.5-16.5); LYMPHOCYTES % (AUTO) 17.9 % (20.5-51.1); MEAN CORPUSCULAR HEMOGLOBIN 26 pg (27-31); MEAN CORPUSCULAR HGB CONC 31 g/dL (33-37); MEAN CORPUSCULAR VOLUME 86.3 fL (80-94); MONOCYTES % (AUTO) 7.2 % (1.7-9.3); NEUTROPHILS # (AUTO) 10.3 K/uL (1.8-7.7); PLATELET COUNT (AUTO) 495 K/uL (140-450); RED BLOOD CELL COUNT(AUTO) 3.38 MIL/uL (4.20-5.40); RED CELL DISTRIBUTION WIDTH 19.1 % (11.6-13.7); WHITE BLOOD COUNT (AUTO) 14.2 K/uL (4.8-10.8)
[2018-02-01] MEDS: ALBUTEROL SULFATE/IPRATROPIU 3 ML SOL IH SCH ×3 (07:28→19:26)
[2018-02-01 07:29] LABS: ANION GAP 17.1 (8-16); CARBON DIOXIDE 26.9 mmol/L (21-32); CHLORIDE 95 mmol/L (98-107); GLUCOSE 232 mg/dL (74-106); MAGNESIUM 2.4 mg/dL (1.8-2.4); SODIUM SERUM 135 mmol/L (136-145)
--- NOTE | 2018-02-01 07:32 | NUR ---
ENDORSED PLAN OF CARE TO DAY SHIFT, PATIENT RESTING IN BED, IN STABLE CONDITION.
[2018-02-01 07:39] LABS: CREATININE 4.8 mg/dL (0.6-1.3); UREA NITROGEN, BLOOD 72 mg/dL (7-18)
[2018-02-01 08:00] VITALS: BP 133/64
[2018-02-01] MEDS: HYDRAGUARD CREAM TP SCH ×3 (09:00→21:15)
[2018-02-01] MEDS: DOCUSATE 100 MG/10 ML UDC GT SCH ×2 (09:00→21:00)
--- NOTE | 2018-02-01 10:00 | NUR ---
20 ML OF WATER GIVEN THROUGH G-TUBE. 150 ML NEPHRO FEEDING GIVEN. 20 ML OF WATER GIVEN AFTER FEEDING. PATIENT TOLERATED WELL. WILL CONTINUE TO MONITOR PATIENT.
[2018-02-01] MEDS: FERROUS SULFATE 300 MG/5 ML UDC PO SCH ×2 (10:10→21:14)
[2018-02-01] MEDS: SODIUM PHOS / POTASSIUM PHOS 1 PKT PDR PO SCH ×3 (10:10→18:05)
[2018-02-01] MEDS: VIT-B COMP/VIT-C/FOLIC ACID 1 TAB GT SCH (10:11)
[2018-02-01] MEDS: metroNIDAZOLE 500 MG TAB GT SCH ×3 (10:11→18:05)
[2018-02-01] MEDS: ASCORBIC ACID 500 MG TAB PO SCH (10:11)
[2018-02-01] MEDS: ISOSORBIDE DINITRATE 10 MG TAB PO SCH ×2 (10:11→21:14)
[2018-02-01] MEDS: LACTOBACILLUS RHAMNOSUS GG 1 EACH CAP GT SCH (10:11)
[2018-02-01] MEDS: CARVEDILOL 3.125 MG TAB PO SCH ×2 (10:12→21:14)
[2018-02-01] MEDS: PATIENTS OWN TABLET PO SCH ×3 (10:16→18:06)
[2018-02-01] MEDS: APIXABAN 2.5 MG TAB PO SCH ×2 (10:53→21:13)
[2018-02-01] MEDS: INSULIN LANTUS 100 UNITS/ML 10 ML VIAL SUBQ SCH (10:55)
[2018-02-01 12:00] VITALS: BP 101/63
[2018-02-01] MEDS: THERAHONEY GEL 42.5 GM TP SCH (13:00)
--- NOTE | 2018-02-01 13:00 | NUR ---
CHANGED PATIENT'S DRESSING ON PATIENTS LEFT HEEL. CLEANSED WITH NORMAL SALINE, PAT DRY. APPLIED THERAHONEY TO WOUND. APPLIED A 4X4 STERILE DRESSING AND ABDOMINAL PAD. WRAPPED PATIENT'S FOOT WITH KERLIX. APPLIED BOOTS TO PATIENT. PATIENT TOLERATED WELL.
--- NOTE | 2018-02-01 14:29 | NUR ---
20 ML OF WATER GIVEN THROUGH G-TUBE. 150 ML NEPHRO FEEDING GIVEN. 20 ML OF WATER GIVEN AFTER FEEDING. MEDICATIONS GIVEN DURING THIS IN PATIENT'S G-TUBE. PATIENT TOLERATED WELL. WILL CONTINUE TO MONITOR PATIENT.
[2018-02-01 16:00] VITALS: BP 134/54
--- NOTE | 2018-02-01 16:20 | NUR ---
PATIENT RESTING IN BED. NO DISTRESS NOTED. WILL CONTINUE TO MONITOR PATIENT.
[2018-02-01] MEDS: LEVOFLOXACIN 500 MG/D5W PREMIX 100 ML IV SCH (18:23)
--- NOTE | 2018-02-01 19:25 | NUR ---
GAVE REPORT TO NIGHTSHIFT NURSE AT BEDSIDE. PATIENT IS IN STABLE CONDITION.
--- NOTE | 2018-02-01 19:35 | NUR ---
RECEIVED REPORT FROM DAY SHIFT, PATIENT RESTING IN BED, NON-VERBAL, NO S/S OF DISTRESS NOTED, ON ROOM AIR. DAUGHTER IS AT THE BEDSIDE. DIALYSIS ACCESS DRESSING DRY AND INTACT TO THE RIGHT UPPER CHEST, IV TO THE RT FOREARM, PATENT AND INTACT. G-TUBE IN PLACE, PLACEMENT CHECKED AND PATENT. DRESSING ON THE LEFT FOOT DRY AND INTACT. PER DAY SHIFT, LAST FEEDING WAS GIVEN AROUND 1800, WILL ADJUST 1ST FEEDING TO 2130 FOR TONIGHT. BILATERAL HEEL PROTECTOR BOOTS ON, CALL LIGHT WITHIN REACH, HEAD OF BED ELEVATED, WOUND BED IS ACTIVATED, SAFETY MEASURE ENSURED, WILL CONTINUE TO MONITOR.
[2018-02-01 20:00] VITALS: BP 133/47
[2018-02-01] MEDS: SIMVASTATIN 20 MG TAB GT SCH (21:14)
--- NOTE | 2018-02-01 21:30 | NUR ---
NO RESIDUAL, G-TUBE PLACEMENT CHECKED, DUE MEDICATION GIVEN VIA G- TUBE, 150 ML NEPHRO GIVEN AND 20ML OF WATER BEFORE AND AFTER VIA G-TUBE. REPOSITIONED PATIENT WITH THE SEWAGE PLANT OPERATOR, BILATERAL HEEL PROTECTOR BOOTS ON, HEAD OF BED ELEVATED, SAFETY MEASURE ENSURED, WILL CONTINUE TO MONITOR
[2018-02-01] MEDS: NACL 0.9% 1,000 ML IV SCH (21:57)
--- NOTE | 2018-02-01 22:05 | NUR ---
PATIENT IS SLEEPING, NO S/S OF DISTRESS NOTED, RESPIRATION EVEN AND UNLABORED, ON ROOM AIR. REPOSITIONED PATIENT WITH HELP DESK ASSOCIATE, CALL LIGHT WITHIN REACH, SAFETY MEASURE ENSURED, WILL CONTINUE TO MONITOR.
[2018-02-02] VITALS: BP 144/68
[2018-02-02] MEDS: BLOOD GLUCOSE MONITORING 1 DEV DEV FS SCH ×6 (00:06→20:00)
[2018-02-02] MEDS: INSULIN LISPRO SLIDING SCALE 100 UNITS/ML VIAL SUBQ PRN ×5 (00:07→22:17)
--- NOTE | 2018-02-02 00:15 | NUR ---
NO RESIDUAL, G-TUBE PLACEMENT CHECKED, 150 ML NEPHRO GIVEN AND 20ML OF WATER BEFORE AND AFTER VIA G-TUBE. G-TUBE DRESSING CHANGED, G-TUBE SITE CLEAN AND INTACT. PATIENT MADE BOWEL MOVEMENT, CLEANED AND REPOSITIONED PATIENT WITH THE RECORD LABEL INTERN, VITAL SIGNS STABLE, BILATERAL HEEL PROTECTOR BOOTS ON, HEAD OF BED ELEVATED, SAFETY MEASURE ENSURED, WILL CONTINUE TO MONITOR
--- NOTE | 2018-02-02 02:16 | NUR ---
PATIENT IS SLEEPING, NO S/S OF DISTRESS NOTED, RESPIRATION EVEN AND UNLABORED, ON ROOM AIR. REPOSITIONED PATIENT WITH CLINICAL DOCUMENTATION DEVELOPER, CALL LIGHT WITHIN REACH, SAFETY MEASURE ENSURED, WILL CONTINUE TO MONITOR.
[2018-02-02 04:00] VITALS: BP 160/63
--- NOTE | 2018-02-02 04:33 | NUR ---
NO RESIDUAL, G-TUBE PLACEMENT CHECKED, 150 ML NEPHRO GIVEN AND 20ML OF WATER BEFORE AND AFTER VIA G-TUBE. REPOSITIONED PATIENT WITH THE GRASSLAND CONSERVATIONIST, BILATERAL HEEL PROTECTOR BOOTS ON, HEAD OF BED ELEVATED, SAFETY MEASURE ENSURED, WOUND BED IS ACTIVATED, WILL CONTINUE TO MONITOR.
--- NOTE | 2018-02-02 04:45 | NUR ---
MADE DR. ASCENCIO AWARE OF PATIENT'S BP 160/63, HR 109, NO ORDER RECEIVED AT THIS TIME.
[2018-02-02 06:28] LABS: BASOPHILS # (AUTO) 0.1 K/uL (0.00-0.22); BASOPHILS % (AUTO) 0.5 % (0.0-2.0); EOSINOPHILS # (AUTO) 0.3 K/uL (0-0.4); EOSINOPHILS % (AUTO) 1.6 % (0.0-4.0); HEMATOCRIT 28.7 % (36-48); HEMOGLOBIN 8.9 g/dL (12.0-16.0); LYMPHOCYTES # (AUTO) 2.8 K/uL (2.5-16.5); LYMPHOCYTES % (AUTO) 17.8 % (20.5-51.1); MEAN CORPUSCULAR HEMOGLOBIN 27 pg (27-31); MEAN CORPUSCULAR HGB CONC 31 g/dL (33-37); MEAN CORPUSCULAR VOLUME 85.5 fL (80-94); MONOCYTES # (AUTO) 1.3 K/uL (0.8-1.0); MONOCYTES % (AUTO) 8.1 % (1.7-9.3); NEUTROPHILS # (AUTO) 11.5 K/uL (1.8-7.7); PLATELET COUNT (AUTO) 461 K/uL (140-450); RED BLOOD CELL COUNT(AUTO) 3.35 MIL/uL (4.20-5.40); RED CELL DISTRIBUTION WIDTH 18.9 % (11.6-13.7)
[2018-02-02] MEDS: PANTOPRAZOLE 40 MG INJ VIAL IV SCH ×2 (06:46→16:56)
[2018-02-02] MEDS: SODIUM PHOS / POTASSIUM PHOS 1 PKT PDR PO SCH ×2 (06:46→12:44)
[2018-02-02 06:47] LABS: ANION GAP 17.4 (8-16); CARBON DIOXIDE 26.1 mmol/L (21-32); CHLORIDE 96 mmol/L (98-107); GLUCOSE 194 mg/dL (74-106); POTASSIUM 4.5 mmol/L (3.5-5.1); SODIUM SERUM 135 mmol/L (136-145)
[2018-02-02 06:57] LABS: UREA NITROGEN, BLOOD 97 mg/dL (7-18)
[2018-02-02 06:58] LABS: CREATININE 6.2 mg/dL (0.6-1.3)
--- NOTE | 2018-02-02 07:37 | NUR ---
ENDORSED PLAN OF CARE TO DAY SHIFT, PATIENT RESTING IN BED, IN STABLE CONDITION.
[2018-02-02] MEDS: ALBUTEROL SULFATE/IPRATROPIU 3 ML SOL IH SCH ×3 (07:40→18:00)
--- NOTE | 2018-02-02 07:45 | NUR ---
RECEIVED PT FROM CASE MONITOR NURSE, PT IS UNABLE TO TALK, AWAKE LYING ON THE BED, PT HAS AN IV LINE ON THE RT FOREARM G.24, INTACT. SIDE RAILS ARE UP AND CALL LIGHT WITHIN REACH. NO SIGN OF DISTRESS NOTED AND WILL CONTINUE TO [place].
--- NOTE | 2018-02-02 07:50 | NUR ---
PT IS AWAKE AND LYING ON THE BED, VITAL SIGNS TAKEN AND IS STABLE. PT IS DUE FOR DIALYSIS TODAY. NO SIGN OF DISTRESS NOTED AND WILL CONTINUE TO MONITOR.
[2018-02-02 08:00] VITALS: BP 152/67
--- NOTE | 2018-02-02 08:10 | NUR ---
PT IS AWAKE, BLOOD GLUCOSE CHECK DONE, INSULIN GIVEN AND FEEDING WAS GIVEN VIA G-TUBE AND PT TOLERATED IT. NO SIGN OF DISTRESS NOTED AND WILL CONTINUE TO MONITOR.
[2018-02-02] MEDS: PATIENTS OWN TABLET PO SCH ×3 (09:00→17:00)
[2018-02-02] MEDS: HYDRAGUARD CREAM TP SCH ×3 (09:00→22:17)
[2018-02-02] MEDS: CARVEDILOL 3.125 MG TAB PO SCH ×2 (09:00→21:00)
[2018-02-02] MEDS: ISOSORBIDE DINITRATE 10 MG TAB PO SCH ×2 (09:00→22:11)
[2018-02-02] MEDS: FERROUS SULFATE 300 MG/5 ML UDC PO SCH ×2 (09:56→22:11)
[2018-02-02] MEDS: DOCUSATE 100 MG/10 ML UDC GT SCH ×2 (09:56→22:10)
[2018-02-02] MEDS: VIT-B COMP/VIT-C/FOLIC ACID 1 TAB GT SCH (09:57)
[2018-02-02] MEDS: ASCORBIC ACID 500 MG TAB PO SCH (09:57)
[2018-02-02] MEDS: LACTOBACILLUS RHAMNOSUS GG 1 EACH CAP GT SCH (09:57)
[2018-02-02] MEDS: APIXABAN 2.5 MG TAB PO SCH ×2 (09:58→22:16)
--- NOTE | 2018-02-02 11:25 | NUR ---
Web Press Operator Assistant Notes: I call Patient's daughter and Son Omayra and Dougie Culp to provide them with patient's update on her status, discuss again for the second time MD recommendation to a (SNF) Nursing Home Facility. Per MrKim and Mrs. Culp both have spoken to MD in great length about recommendations and are not on agreement to have patient placed on a SNF. Per Mrs. Culp they both have verbalized understanding of patient's condition and have expressed their decision and willing to learn on how to care for their mother at home. Per Mr. Culp they will like to take patient home when she is ready for discharge; They are willing to learn how to implement and care for patient at home and will like to request for mother to resume with home health services when patient is discharge. I thank Mr. & Mrs. Culp for information and ended the call.
[2018-02-02] MEDS: metroNIDAZOLE 500 MG TAB GT SCH ×3 (11:26→18:23)
[2018-02-02] MEDS: INSULIN LANTUS 100 UNITS/ML 10 ML VIAL SUBQ SCH (11:31)
[2018-02-02 12:00] VITALS: BP 147/72
--- NOTE | 2018-02-02 12:00 | NUR ---
PT IS AWAKE AND BLOOD GLUCOSE CHECK DONE, INSULIN GIVEN. FEEDING WAS GIVEN AND NO RESIDUAL NOTED. NO SIGN OF DISTRESS NOTED ON THE PT. SIDE RAILS UP AND CALL LIGHT WITHIN REACH. WILL MONITOR.
[2018-02-02] MEDS: THERAHONEY GEL 42.5 GM TP SCH (13:00)
[2018-02-02 16:00] VITALS: BP 146/75
--- NOTE | 2018-02-02 16:00 | NUR ---
PT IS ASLEEP AND BLOOD GLUCOSE CHECK DONE, MEDICATIONS GIVEN AND PT TOLERATED IT. NO SIGN OF DISTRESS NOTED. WILL CONTINUE TO MONITOR.
[2018-02-02] MEDS ORDERED: VANCOMYCIN 500 MG VIAL PO SCH (18:31)
--- NOTE | 2018-02-02 19:28 | NUR ---
HHNTX NOT GIVEN. PT ON DIALYSIS. NO SOB NOTED. WILL GIVE PRN HHNTX IF NEEDED
--- NOTE | 2018-02-02 19:41 | NUR ---
ENDORSED PT TO COMPENSATION AND BENEFITS ADVISOR NURSE, PT IS HAVING DIALYSIS AT THIS TIME WITH DAUGHTER ON THE BEDSIDE. PT IS STABLE WITH NO SIGN OF DISTRESS NOTED.
--- NOTE | 2018-02-02 19:42 | NUR ---
RECEIVED BEDSIDE REPORT FROM DAY SHIFT NURSE ANGELICA-FAWN. PATIENT IS SLEEPING, AOX1-NONVERBAL. ON ROOM AIR, NO S/S OF RESPIRATORY DISTRESS OR DISCOMFORT AT THIS TIME. IV ON RIGHT FB 24G INFUSING NS AT 10ML/HR. IV IS CLEAN, DRY AND INTACT. R ARM IS CONTRACTED AND BLE IS CONTRACTED FROM HX OF A STROKE. R UPPER CHEST CATH FOR DIALYSIS IS CLEAN, DRY AND INTACT. DIALYSIS NURSE CURRENTLY IN ROOM. G TUBE IS IN PLACE WITH NO RESIDUAL. G TUBE IS CLEAN, DRY AND INTACT. L HEEL HAS TWO ULCERS. DRESSING IS CLEAN, AND DRY. HEEL PROTECTOR BOOTS ARE IN PLACE. TELE MONITOR IS IN PLACE. PATIENT IS DNR. BED IN LOWEST POSITION, BED BREAKS ON, SIDE RAILS UP, BED ALARM ON. FREQUENT CHECKS NEEDED. DISCUSSED PLAN OF CARE WITH PT HOWEVER DAUGHTER VERBALIZED UNDERSTANDING. WHITE BOARD UPDATED. WILL CONTINUE TO MONITOR.
[2018-02-02 20:00] VITALS: BP 133/64
--- NOTE | 2018-02-02 20:00 | NUR ---
VITAL SIGNS TAKEN AND TOLERATED WELL. 150ML OF NEPHRO GIVEN AND 20ML OF WATER BEFORE AND AFTER. PT TOLERATED WELL. WILL CONTINUE TO MONITOR.
--- NOTE | 2018-02-02 20:20 | NUR ---
BLOOD GLUCOSE 186. WILL GIVEN INSULIN PER PROTOCOL.
[2018-02-02] MEDS: EPOETIN ALFA 4,000 UNITS/ML VIAL IV SCH (22:09)
[2018-02-02] MEDS: SIMVASTATIN 20 MG TAB GT SCH (22:10)
--- NOTE | 2018-02-02 22:20 | NUR ---
SCHEDULED MEDICATION GIVEN. PT TOLERATED WELL. WILL CONTINUE TO MONITOR.
[2018-02-03] VITALS: BP 137/79
[2018-02-03] MEDS ORDERED: PHARMACY COMMENTS MC SCH
[2018-02-03] MEDS ORDERED: VANCOMYCIN 500 MG VIAL PO SCH
--- NOTE | 2018-02-03 | NUR ---
VITAL SIGNS TAKEN. 150ML OF NEPHRO GIVEN AND 20ML OF WATER GIVEN BEFORE AND AFTER VIA G-TUBE. WILL CONTINUE TO MONITOR.
--- NOTE | 2018-02-03 01:00 | NUR ---
GUALBERTO PEARSON ASSISTED WITH CHUX CHANGE. PT HAD A BM. SACRAL DRESSING CHANGED.
[2018-02-03] MEDS: NACL 0.9% 1,000 ML IV SCH (01:10)
--- NOTE | 2018-02-03 01:15 | NUR ---
BLOOD GLUCOSE 178. WILL ADMINISTER INSULIN PER PROTOCOL.
--- NOTE | 2018-02-03 01:50 | NUR ---
PT CONTINUES TO SLEEP. NO S/S OF RESPIRATORY DISTRESS OR DISCOMFORT NOTED AT THIS TIME. WILL CONTINUE TO MONITOR.
[2018-02-03 04:00] VITALS: BP 137/74
--- NOTE | 2018-02-03 04:00 | NUR ---
GUALBERTO PEARSON ASSISTED WITH CHUX CHANGE. PT HAD A BM. SACRAL DRESSING CHANGED.
[2018-02-03] MEDS: BLOOD GLUCOSE MONITORING 1 DEV DEV FS SCH ×5 (04:25→16:57)
[2018-02-03] MEDS: INSULIN LISPRO SLIDING SCALE 100 UNITS/ML VIAL SUBQ PRN ×3 (04:28→12:20)
--- NOTE | 2018-02-03 04:30 | NUR ---
BLOOD GLUCOSE 239. INSULIN GIVEN PER PROTOCOL.
[2018-02-03] MEDS: PANTOPRAZOLE 40 MG INJ VIAL IV SCH ×2 (06:53→16:30)
[2018-02-03] MEDS: ALBUTEROL SULFATE/IPRATROPIU 3 ML SOL IH SCH ×2 (07:05→13:09)
--- NOTE | 2018-02-03 07:07 | NUR ---
SCHEDULED MEDICATION GIVEN. PT SLEEPING IN BED. NO S/S OF RESPIRATORY DISTRESS OR DISCOMFORT AT THIS TIME. WILL CONTINUE TO MONITOR.
--- NOTE | 2018-02-03 07:16 | NUR ---
ENDORSED PT CARE TO DAY SHIFT NURSE CELE FOR CONTINUITY OF CARE.
--- NOTE | 2018-02-03 07:20 | NUR ---
RECEIVED REPORT FROM MAINTENANCE REPRESENTATIVE NURSE, SARAH, PT IS ASLEEP LYING ON THE BED WITH BREATHING TREATMENT ON GOING AND RT IS ON THE BEDSIDE. SIDE RAILS ARE UP AND FALL PRECAUTION ENFORCED. PT HAS AN IV ACCESS ON THE RT FA G. 24, NS RUNNING AT O, INTACT. NO SIGN OF DISTRESS NOTED AND WILL CONTINUE TO MONITOR.
--- NOTE | 2018-02-03 07:45 | NUR ---
PT IS ASLEEP AND VITAL SIGNS TAKEN. RESPIRATION EVEN AND NO SIGN OF DISTRESS NOTED. FALL PREACUTION ENFORCED AND WILL CONTINUE TO MONITOR.
[2018-02-03 08:00] VITALS: BP 151/70
[2018-02-03 08:03] LABS: BASOPHILS # (AUTO) 0.1 K/uL (0.00-0.22); BASOPHILS % (AUTO) 0.4 % (0.0-2.0); EOSINOPHILS # (AUTO) 0.1 K/uL (0-0.4); HEMATOCRIT 27.4 % (36-48); HEMOGLOBIN 8.6 g/dL (12.0-16.0); LYMPHOCYTES # (AUTO) 2.7 K/uL (2.5-16.5); LYMPHOCYTES % (AUTO) 18.7 % (20.5-51.1); MEAN CORPUSCULAR HEMOGLOBIN 27 pg (27-31); MEAN CORPUSCULAR HGB CONC 32 g/dL (33-37); MEAN CORPUSCULAR VOLUME 85.6 fL (80-94); MONOCYTES # (AUTO) 1.3 K/uL (0.8-1.0); MONOCYTES % (AUTO) 8.8 % (1.7-9.3); NEUTROPHILS # (AUTO) 10.2 K/uL (1.8-7.7); NEUTROPHILS % (AUTO) 71.1 % (42.2-75.2); PLATELET COUNT (AUTO) 358 K/uL (140-450); RED CELL DISTRIBUTION WIDTH 19.3 % (11.6-13.7); WHITE BLOOD COUNT (AUTO) 14.4 K/uL (4.8-10.8)
--- NOTE | 2018-02-03 08:15 | NUR ---
PT IS AWAKE WITH FAMILY ON THE BEDSIDE, BLOOD GLUCOSE CHECK DONE AND RESULT IS 206. MEDICATIONS AND FEEDING GIVEN VIA THE G-TUBE AND PT TOLERATED IT WELL. NO SIGN OF DISTRESS NOTED AND WILL CONTINUE TO MONITOR.
[2018-02-03 08:20] LABS: ANION GAP 16.3 (8-16); CARBON DIOXIDE 26.3 mmol/L (21-32); CHLORIDE 95 mmol/L (98-107); CREATININE 3.4 mg/dL (0.6-1.3); GLUCOSE 270 mg/dL (74-106); POTASSIUM 3.6 mmol/L (3.5-5.1); SODIUM SERUM 134 mmol/L (136-145); UREA NITROGEN, BLOOD 40 mg/dL (7-18)
[2018-02-03] MEDS: LACTOBACILLUS RHAMNOSUS GG 1 EACH CAP GT SCH (08:49)
[2018-02-03] MEDS: metroNIDAZOLE 500 MG TAB GT SCH ×3 (08:49→16:58)
[2018-02-03] MEDS: VIT-B COMP/VIT-C/FOLIC ACID 1 TAB GT SCH (08:50)
[2018-02-03] MEDS: ASCORBIC ACID 500 MG TAB PO SCH (08:51)
[2018-02-03] MEDS: CARVEDILOL 3.125 MG TAB PO SCH (08:52)
[2018-02-03] MEDS: FERROUS SULFATE 300 MG/5 ML UDC PO SCH (08:53)
[2018-02-03] MEDS: ISOSORBIDE DINITRATE 10 MG TAB PO SCH (08:53)
[2018-02-03] MEDS: DOCUSATE 100 MG/10 ML UDC GT SCH (08:54)
[2018-02-03] MEDS: APIXABAN 2.5 MG TAB PO SCH (08:59)
[2018-02-03] MEDS: HYDRAGUARD CREAM TP SCH ×2 (09:00→12:21)
[2018-02-03] MEDS: INSULIN LANTUS 100 UNITS/ML 10 ML VIAL SUBQ SCH (09:00)
[2018-02-03] MEDS: PATIENTS OWN TABLET PO SCH ×3 (09:14→16:58)
--- NOTE | 2018-02-03 10:15 | NUR ---
PT IS AWAKE AND BEING CLEANED BY LUKASZ BURCIAGA, DRESSING WAS CHANGED AND HYDRAGUARD CREAM AND OPTIFOAM PROTECTION APPLIED ON THE SACRAL PART. NO SIGN OF DISTRESS NOTED, SAFETY PRECAUTION ENFORCED. WILL CONTINUE TO MONITOR.
--- NOTE | 2018-02-03 10:27 | NUR ---
ACKNOWLEDGED AN ORDER FOR THE PT FROM DR. MATIAS FOR A HOME HEALTH ARRANGEMENT, AND FOR SAFETY EVALUATION.
[2018-02-03 12:00] VITALS: BP 125/60
[2018-02-03] MEDS: THERAHONEY GEL 42.5 GM TP SCH (12:22)
--- NOTE | 2018-02-03 12:50 | NUR ---
DR. TAMEZ CAME AND SAW THE PT WHILE THE PT'S FEEDING IS ON GOING. PT TOLERATED THE FEEDING WELL WITH NO RESIDUAL, MEDICATION GIVEN ALSO. NO SIGN OF DISTRESS NOTED AND WILL CONTINUE TO MONITOR.
[2018-02-03 12:57] LABS: MAGNESIUM 1.9 mg/dL (1.8-2.4); PHOSPHORUS 3.6 mg/dL (2.5-4.9)
--- NOTE | 2018-02-03 13:01 | NUR ---
DR. MATIAS CHECKED ON THE PT AND INCREASE THE PT'S IVF RATE TO 30ML/HR. RELAYED ABOUT THE FNS SUGGESTION OF GIVING A CONTINUOUS FEEDING WITH THE PT. DR. MATIAS SAID THAT IT MIGHT NOT BE A GOOD IDEA BECAUSE PT WILL NOT BE ABLE TO HAVE IT DONE AT HOME.
--- NOTE | 2018-02-03 13:20 | NUR ---
BREATHING TREATMENT WAS GIVEN TO THE PT BY THE RT BEER COOLER, PT TOLERATED IT WELL AND NO SIGN OF DISTRESS NOTED. WILL CONTINUE TO MONITOR.
[2018-02-03 16:00] VITALS: BP 132/63
--- NOTE | 2018-02-03 16:23 | NUR ---
02/03/18 RD FOLLOW UP COMPLETED PLEASE REFER TO NUTRITION ASSESSMENT UNDER CARE ACTIVITY FOR ESTIMATED NUTRITIONAL NEEDS. 1. RECOMMEND NOVASOURCE RENAL CONTINUOS FEED. STARTING AT 10 ML AND INCREASING 10 ML Q6H UNTIL GOAL RATE OF 35 ML/HR IS REACHED. -THIS WILL PROVIDE 840 ML, 1680 KCAL, AND 76 GM OF PROTEIN, MEETING 100% OF PATIENTS ESTIMATED ENERGY NEEDS. 2. RD TO FOLLOW-UP 2-3 DAYS, HIGH RISK SHIRA PEREZ, RD
[2018-02-03] MEDS ORDERED: LEVO500T2 GT (16:25)
[2018-02-03] MEDS ORDERED: Therahoney Gel TP (16:25)
[2018-02-03] MEDS ORDERED: APIX2.5 PO (16:25)
[2018-02-03] MEDS ORDERED: METR500T1 GT (16:25)
--- NOTE | 2018-02-03 16:32 | NUR ---
ACKNOWLEDGED A DISCHARGE ORDER AND A SS SERVICE FOR THE PT FROM BR. MATIAS. WILL FACILITATE DISCHARGE PROCESS.
[2018-02-03] MEDS ORDERED: INSU100S22 SUBQ (16:35)
[2018-02-03] MEDS ORDERED: LACT10CA GT (16:35)
[2018-02-03] MEDS ORDERED: INSU100S54 SC (16:35)
[2018-02-03] MEDS ORDERED: Hydraguard TP (16:35)
--- NOTE | 2018-02-03 17:12 | NUR ---
Patented Hogshead Assembler Notes: These jingle writer Fax inquiry at for [facility] for Patient Safety Evaluation, Wound care and Antibiotics given as requested by .
[2018-02-03] MEDS ORDERED: LEVOFLOXACIN 500 MG TAB GT SCH (18:00)
--- NOTE | 2018-02-03 18:00 | NUR ---
PT IS AWAKE AND DRESSING CHANGED DONE ON THE WOUNDS. G-TUBE DRESSING CHANGED. NO SIGN OF DISTRESS NOTED.
--- NOTE | 2018-02-03 19:15 | NUR ---
DISCHARGED PT WITH FAMILY VIA WHEELCHAIR, IV LINE AND ARM BANDS REMOVED, DRESSING CHANGED DONE, DISCHARGED INSTRUCTIONS GIVEN AND MEDICATION PRESCRIPTION GIVEN, NO SIGN OF DISTRESS NOTED ON THE PT AND IS STABLE.
== END 2018-02-03 19:15 | disposition home or self-care (01) | DRG 871 ==
LOC: MED 20:22 → MTU 22:48
PROVIDERS: ADMIT General Practice; ATTEND General Practice
PROC: 5A1D70Z Performance of Urinary Filtration, Intermittent, Less than 6 Hours Per Day (ICD-10-PCS; principal; 2018-01-26)
PROC: 5A1D70Z Performance of Urinary Filtration, Intermittent, Less than 6 Hours Per Day (ICD-10-PCS; 2018-01-27)
PROC: 5A1D70Z Performance of Urinary Filtration, Intermittent, Less than 6 Hours Per Day (ICD-10-PCS; 2018-01-28)
PROC: 5A1D70Z Performance of Urinary Filtration, Intermittent, Less than 6 Hours Per Day (ICD-10-PCS; 2018-01-30)
PROC: 5A1D70Z Performance of Urinary Filtration, Intermittent, Less than 6 Hours Per Day (ICD-10-PCS; 2018-02-02)
DX: A41.9 Sepsis, unspecified organism (principal); N17.0 Acute kidney failure with tubular necrosis; J96.01 Acute respiratory failure with hypoxia; E43 Unspecified severe protein-calorie malnutrition; I13.2 Hypertensive heart and chronic kidney disease with heart failure and with stage 5 chronic kidney disease, or end stage renal disease; L89.624 Pressure ulcer of left heel, stage 4; A04.72 Enterocolitis due to Clostridium difficile, not specified as recurrent; J18.9 Pneumonia, unspecified organism; D68.69 Other thrombophilia; N18.6 End stage renal disease; I50.43 Acute on chronic combined systolic (congestive) and diastolic (congestive) heart failure; E87.1 Hypo-osmolality and hyponatremia; Z68.1 Body mass index [BMI] 19.9 or less, adult; I25.10 Atherosclerotic heart disease of native coronary artery without angina pectoris; E78.00 Pure hypercholesterolemia, unspecified; E83.39 Other disorders of phosphorus metabolism; D50.9 Iron deficiency anemia, unspecified; I48.2 Chronic atrial fibrillation; D63.1 Anemia in chronic kidney disease; B96.5 Pseudomonas (aeruginosa) (mallei) (pseudomallei) as the cause of diseases classified elsewhere; E11.69 Type 2 diabetes mellitus with other specified complication; E11.22 Type 2 diabetes mellitus with diabetic chronic kidney disease; Z93.1 Gastrostomy status; R65.20 Severe sepsis without septic shock; E83.41 Hypermagnesemia; E78.5 Hyperlipidemia, unspecified; Z66 Do not resuscitate; Z99.2 Dependence on renal dialysis; Z86.73 Personal history of transient ischemic attack (TIA), and cerebral infarction without residual deficits; E11.621 Type 2 diabetes mellitus with foot ulcer; L90.5 Scar conditions and fibrosis of skin; L97.529 Non-pressure chronic ulcer of other part of left foot with unspecified severity; L89.610 Pressure ulcer of right heel, unstageable; L97.519 Non-pressure chronic ulcer of other part of right foot with unspecified severity
CPT/HCPCS: 36415; 36600; 71045; 73630; 80048; 80053; 80202; 82140; 82150; 82550; 82803; 82948; 83036; 83605; 83615; 83690; 83735; 83880; 84100; 84436; 84439; 84443; 84479; 84484; 85025; 85610; 85730; 86704; 86706; 86708; 86709; 86803; 87040; 87070; 87081; 87186; 87205; 87340; 90935; 93005; 94640; 96365; 96367; 96375; 99291; C1758; C9113; J0885; J1644; J1815; J1956; J2543; J3370; J3490; J7030; J7060; J7620; Q0092

== ENCOUNTER 2018-03-30 14:55 | Inpatient (IN) | payer OTHER ==
[~2018-03-30] VITALS: Ht 152.4 cm; Wt 44.0 kg
[~2018-03-30 14:55] MED LIST changes: +APIX2.5 PO; -CLOP75TA PO; +Hydraguard TP; +INSU100S22 SUBQ; +INSU100S54 SC; +LACT10CA GT; +LEVA0.6318 INH; +LEVO500T2 GT; +METR500T1 GT; +SEVE800T6 GT; +Therahoney Gel TP
[2018-03-30 15:15] VITALS: BP 116/49
--- NOTE | 2018-03-30 15:20 | NUR ---
83Y/F BIB [facility] FROM DIALYSIS WITH C/O GENERALYZED WEAKNESS, HYPOTENSIVE AT 0900; DIALYSIS WAS CANCELLED TODAY; BP UPON ARIVAL 116/49; INFORMATION OBTAINED FROM DAUGHTER AT BEDSIDE. PT'S HAS NO N/V/D; SKIN IS PINK/WARM/DRY; AAOX WITH EVEN AND STEADY GAIT; LUNGS CLEAR BL; HR EVEN AND REGULAR; PT DENIES ANY FEVER, CP, SOB, OR COUGH AT THIS TIME; PATIENT STATES PAIN OF 0/10 AT THIS TIME; VSS; PATIENT POSITIONED FOR COMFORT; HOB ELEVATED; BEDRAILS UP X1; BED DOWN. ER MD MADE AWARE OF PT STATUS. HX; DM, HTN, RENAL DZ, CVA RX; CARVEDILOL, ISOSORBIDE, AMLOD/VALSA, LEVEMIR, RENVELA
[2018-03-30] MEDS ORDERED: NACL 0.9% 1,000 ML IV ONE (15:25)
[2018-03-30] MEDS ORDERED: PIPERACILLIN/TAZOBACTAM 3.375 GM in DEXTROSE 5% 50 ML IV ONE (15:25)
[2018-03-30] MEDS ORDERED: VANCOMYCIN 500 MG in DEXTROSE 5% 100 ML IV SCH (15:25)
--- NOTE | 2018-03-30 15:41 | NUR ---
PT HAS CLEAR BREATH SOUNDS. UNABLE TO OBTAIN SPUTUM SAMPLE AT THIS MOMENT. NOTIFIED DR WALLACE. WILL ENDORSE TO NEXT SHIFT.
[2018-03-30] MEDS ORDERED: PIPERACILLIN/TAZOBACTAM 3.375 GM VIAL IV ONE (16:01)
[2018-03-30 16:45] LABS: BASOPHILS # (AUTO) 0.1 K/uL (0.00-0.22); BASOPHILS % (AUTO) 0.6 % (0.0-2.0); EOSINOPHILS # (AUTO) 0.3 K/uL (0-0.4); EOSINOPHILS % (AUTO) 2.1 % (0.0-4.0); HEMATOCRIT 37.3 % (36-48); HEMOGLOBIN 12.2 g/dL (12.0-16.0); LYMPHOCYTES # (AUTO) 2.7 K/uL (2.5-16.5); MEAN CORPUSCULAR HEMOGLOBIN 30 pg (27-31); MEAN CORPUSCULAR HGB CONC 33 g/dL (33-37); MEAN CORPUSCULAR VOLUME 90.2 fL (80-94); MONOCYTES % (AUTO) 6.7 % (1.7-9.3); NEUTROPHILS # (AUTO) 10.2 K/uL (1.8-7.7); NEUTROPHILS % (AUTO) 71.6 % (42.2-75.2); PLATELET COUNT (AUTO) 264 K/uL (140-450); RED BLOOD CELL COUNT(AUTO) 4.13 MIL/uL (4.20-5.40); RED CELL DISTRIBUTION WIDTH 20.3 % (11.6-13.7); WHITE BLOOD COUNT (AUTO) 14.2 K/uL (4.8-10.8)
[2018-03-30 17:07] LABS: PROTHROMBIN TIME 10.2 secs (10.8-13.4)
[2018-03-30 17:12] LABS: ALBUMIN 3.2 g/dL (3.4-5.0); ANION GAP 22.2 (8-16); ASPARTATE AMINOTRANSFERASE 26 U/L (15-37); CARBON DIOXIDE 24.8 mmol/L (21-32); CHLORIDE 91 mmol/L (98-107); GLUCOSE 393 mg/dL (74-106); SODIUM SERUM 134 mmol/L (136-145); TOTAL BILIRUBIN 0.5 mg/dL (0.0-1.0)
--- NOTE | 2018-03-30 17:12 | NUR ---
NO URINE COLLECTED, PT IS NOT ABLE TO PRODUCE URINE AT THIS TIME. PT GETS DIALYSIS Friday. PT HAD NO DIALYSIS TODAY ACCORDING TO DTR.
[2018-03-30 17:20] LABS: UREA NITROGEN, BLOOD 127 mg/dL (7-18)
[2018-03-30 17:21] LABS: CREATININE 9.9 mg/dL (0.6-1.3)
[2018-03-30] MEDS ORDERED: HYDROcodone/APAP 5/325 MG 1 TAB TAB PO PRN (18:30)
[2018-03-30] MEDS ORDERED: DOCUSATE SODIUM 100 MG GELCAP PO PRN (18:30)
[2018-03-30] MEDS ORDERED: ONDANSETRON 4 MG/2 ML VIAL IM/IVP PRN (18:30)
[2018-03-30] MEDS ORDERED: INSULIN REGULAR, HUMAN 100 UNIT/ML VIAL IVP ONE (19:15)
--- NOTE | 2018-03-30 19:39 | NUR ---
RECEIVED REPORT FROM AM NURSE. PT RESTING IN BED COMFORTABLY, VS NOTED. AWAITING ADMISSION. ALL NEEDS MET.
[2018-03-30 19:43] LABS: CHOL/HDL RATIO 6.6 (1-4.5); FREE T4 (FREE THYROXINE) 0.98 ng/dL (0.76-1.46); THYROID STIMULATING HORMONE 4.2 uIU/mL (0.34-3.74)
[2018-03-30] MEDS ORDERED: SEVE800T6 GT (20:02)
[2018-03-30] MEDS ORDERED: CARV3.122 PO (20:02)
[2018-03-30] MEDS ORDERED: AMLO1TAB11 PO (20:02)
[2018-03-30] MEDS ORDERED: INSU100S53 SC (20:02)
[2018-03-30] MEDS ORDERED: ISOS10TA9 GT (20:02)
[2018-03-30] MEDS ORDERED: DEXTROSE 50% 50 ML SYR IVP PRN (20:15)
[2018-03-30 20:55] VITALS: BP 124/50
--- NOTE | 2018-03-30 20:55 | NUR ---
REPORT RECEIVED FROM ED NURSE AT BEDSIDE. PT IN STABLE CONDITION. VS STABLE. AAOX1. INTRODUCED SELF TO PT AND FAMILY AT BEDSIDE. BOARD UPDATED. IV SITE R HAND 22G PATENT AND INTACT RUNNING NS AT 50ML/HR. SKIN WARM, CLAMMY, AND NOT INTACT DUE TO DECUBITUS ON THE LEFT HEEL AND FOOT, SCABBING AND REDNESS ON THE RIGHT FOOT, AND HEALING DECUBITUS ON THE SACRUM. LUNGS CLEAR. HEART SOUNDS NORMAL. PT HAS GTUBE THAT IS PATENT AND INTACT. TELE MONITORING. PT IS SLIGHTLY CONTRACTED. BED LOCKED IN LOW POSITION. CALL GARCIA WITHIN REACH.
--- NOTE | 2018-03-30 20:55 | NUR ---
Patient will be admitted to care of DR. PEGUERO. Admited to TELE. Will go to room 124B. Belongings list completed. Report to FAWN KELLY AT BEDSIDE.
[2018-03-30] MEDS: BLOOD GLUCOSE MONITORING 1 DEV DEV FS SCH (21:00)
[2018-03-30] MEDS ORDERED: ISOSORBIDE DINITRATE 10 MG TAB GT SCH (21:00)
[2018-03-30] MEDS: CARVEDILOL 3.125 MG TAB GT SCH (21:00)
[2018-03-30] MEDS: INSULIN LANTUS 100 UNITS/ML 10 ML VIAL SUBQ SCH (22:16)
[2018-03-30] MEDS: INSULIN LISPRO SLIDING SCALE 100 UNITS/ML VIAL SUBQ PRN (22:16)
--- NOTE | 2018-03-30 22:20 | NUR ---
ISORDIL, ELIQUIS, PROTONIX, AND ZOCOR GIVEN. BS 337. 8 UNITS OF HUMALOG GIVEN. 15 UNITS OF LANTUS GIVEN. COREG HELD DUE TO DIASTOLIC BP OF 50. PT TOLERATED WELL.
[2018-03-30] MEDS: SIMVASTATIN 10 MG TAB GT SCH (22:23)
[2018-03-30] MEDS: APIXABAN 2.5 MG TAB GT SCH (22:28)
[2018-03-30] MEDS: PANTOPRAZOLE 40 MG INJ VIAL IVP SCH (22:28)
[2018-03-30] MEDS: NACL 0.9% 1,000 ML IV SCH (22:29)
[2018-03-30] MEDS ORDERED: ALBUTEROL 0.083% 2.5 MG/3 ML NEBU INH PRN (22:45)
[2018-03-30] MEDS ORDERED: ALBUTEROL SULFATE/IPRATROPIU 3 ML SOL IH PRN (22:45)
--- NOTE | 2018-03-30 23:08 | NUR ---
2300 PATIENT HAS CLEAR BREATH SOUNDS. NO SOB NOTED. UNABLE TO GET SPUTUM SAMPLE AT THIS TIME. CUP IS AT BEDSIDE. RN AWARE
--- NOTE | 2018-03-30 23:10 | NUR ---
PATIENT IS UNABLE TO DO INCENTIVE SPIROMETER.
[2018-03-31] VITALS: BP 108/56
--- NOTE | 2018-03-31 00:15 | NUR ---
DRESSING CHANGED. GAUZE PUT ON WOUND BED. WRAPPED WITH KERLIX AND TAPED. PICTURES OF WOUND TAKEN AND PUT IN CHART.
--- NOTE | 2018-03-31 02:30 | NUR ---
PT SLEEPING COMFORTABLY IN BED. NO S/S OF DISTRESS. WILL CONTINUE TO MONITOR.
[2018-03-31 04:00] VITALS: BP 102/45
[2018-03-31] MEDS: BLOOD GLUCOSE MONITORING 1 DEV DEV FS SCH ×4 (05:48→21:47)
--- NOTE | 2018-03-31 05:48 | NUR ---
BS 141. NO COVERAGE NEEDED.
[2018-03-31] MEDS ORDERED: PIPERACILLIN/TAZOBACTAM 2.25 GM VIAL IV ONE (05:56)
[2018-03-31] MEDS ORDERED: PIPER/TAZO 2.25GM/D5W PREMIX 50 ML IV SCH (06:00)
--- NOTE | 2018-03-31 06:00 | NUR ---
ROSESYMarlene HUNG. DUPLICATE ORDER DUE TO OVERRIDING MEDICATION IN PYXIS. ORIGINAL ORDER WAS ADMINISTRATED. PT TOLERATING WELL.
[2018-03-31] MEDS: ALBUTEROL SULFATE/IPRATROPIU 3 ML SOL IH SCH ×3 (06:21→18:48)
[2018-03-31 06:43] LABS: BASOPHILS % (AUTO) 0.4 % (0.0-2.0); EOSINOPHILS # (AUTO) 0.6 K/uL (0-0.4); EOSINOPHILS % (AUTO) 4.7 % (0.0-4.0); HEMATOCRIT 33.6 % (36-48); HEMOGLOBIN 10.6 g/dL (12.0-16.0); LYMPHOCYTES # (AUTO) 2.9 K/uL (2.5-16.5); LYMPHOCYTES % (AUTO) 23.8 % (20.5-51.1); MEAN CORPUSCULAR HEMOGLOBIN 29 pg (27-31); MEAN CORPUSCULAR HGB CONC 32 g/dL (33-37); MONOCYTES # (AUTO) 0.9 K/uL (0.8-1.0); MONOCYTES % (AUTO) 7.3 % (1.7-9.3); NEUTROPHILS # (AUTO) 7.8 K/uL (1.8-7.7); NEUTROPHILS % (AUTO) 63.8 % (42.2-75.2); PLATELET COUNT (AUTO) 227 K/uL (140-450); RED BLOOD CELL COUNT(AUTO) 3.69 MIL/uL (4.20-5.40); RED CELL DISTRIBUTION WIDTH 20.1 % (11.6-13.7); WHITE BLOOD COUNT (AUTO) 12.3 K/uL (4.8-10.8)
--- NOTE | 2018-03-31 07:05 | NUR ---
REPORT GIVEN TO AM NURSE AT BEDSIDE. PT IN STABLE CONDITION.
[2018-03-31] MEDS ORDERED: DEXT 5% /NACL 0.9% 1,000 ML IV SCH (07:45)
[2018-03-31 08:00] VITALS: BP 113/46
--- NOTE | 2018-03-31 08:00 | NUR ---
PATIENT SEEN BY DR ARGUELLES. WOUND DRESSING TO THE LOWER EXTREMITIES CHANGED BY THE DOCTOR
--- NOTE | 2018-03-31 08:20 | NUR ---
SPOKE TO ARTURO MORA AND TOLD HER ABOUT THE HEMODIALYSIS ORDER FOR THE PATIENT
[2018-03-31 08:43] LABS: MAGNESIUM 3.9 mg/dL (1.8-2.4); PHOSPHORUS 3.9 mg/dL (2.5-4.9)
[2018-03-31] MEDS: CARVEDILOL 3.125 MG TAB GT SCH ×2 (09:00→21:48)
[2018-03-31] MEDS ORDERED: LACTULOSE 20 GM/30 ML UDC GT SCH (09:00)
[2018-03-31 09:03] LABS: ANION GAP 19.4 (8-16); CARBON DIOXIDE 26.6 mmol/L (21-32); CHLORIDE 98 mmol/L (98-107); GLUCOSE 122 mg/dL (74-106); SODIUM SERUM 140 mmol/L (136-145)
[2018-03-31 09:29] LABS: CREATININE 10.4 mg/dL (0.6-1.3); UREA NITROGEN, BLOOD 130 mg/dL (7-18)
--- NOTE | 2018-03-31 09:30 | NUR ---
TUBE FEEDING STARTED. NO RESIDUALS NOTED AT THIS TIME. G-TUBE SITE INTACT AND ASYMPTOMATIC
[2018-03-31] MEDS: ASPIRIN 81 MG TAB.CHEW GT SCH (09:33)
[2018-03-31] MEDS: LACTOBACILLUS RHAMNOSUS GG 1 EACH CAP PO SCH (09:33)
[2018-03-31] MEDS: ACETAMINOPHEN 325 MG TAB PO PRN (09:33)
[2018-03-31] MEDS: VIT-B COMP/VIT-C/FOLIC ACID 1 TAB GT SCH (09:34)
[2018-03-31] MEDS: PANTOPRAZOLE 40 MG INJ VIAL IVP SCH ×2 (09:35→21:45)
[2018-03-31] MEDS: APIXABAN 2.5 MG TAB GT SCH ×2 (09:35→21:49)
--- NOTE | 2018-03-31 10:55 | NUR ---
PATIENT HAS BEEN SCREENED AND CATEGORIZED HIGH NUTRITION RISK. PATIENT WILL BE SEEN WITHIN 1-2 DAYS OF ADMISSION. 03/31/18 04/01/[address]
[2018-03-31] MEDS ORDERED: ALBUMIN HUMAN 25% 100 ML IV PRN (11:00)
--- NOTE | 2018-03-31 11:52 | NUR ---
TEMP 98.2. HEMODIALYSIS IN PROGRESS. NO S/S OF DISTRESS NOTED
[2018-03-31 12:00] VITALS: BP 159/68
[2018-03-31] MEDS: NACL 0.9% 1,000 ML IV SCH (12:22)
[2018-03-31] MEDS: INSULIN LISPRO SLIDING SCALE 100 UNITS/ML VIAL SUBQ PRN ×2 (12:55→21:51)
--- NOTE | 2018-03-31 13:11 | NUR ---
PT SLEEPING WITH NO SIGNS OF DISTRESS NOTED AT THIS TIME PT HAVING DIALYSIS
--- NOTE | 2018-03-31 13:40 | NUR ---
03/31/18 RD INITIAL ASSESSMENT COMPLETED PLEASE REFER TO NUTRITION ASSESSMENT UNDER CARE ACTIVITY FOR ESTIMATED NUTRITIONAL NEEDS. 1. CONTINUE TUBE FEEDING NEPRO AT 10 ML/HR X24 HOURS VIA GTUBE WITH END GOAL RATE OF 40 ML/HR. ADVANCE 10 ML/HR Q6H ONCE GLUCOSE WNL -AT 40ML/HR THIS IS ADEQUATE TO PROVIDE PATIENT WITH 100 % OF ESTIMATED KCAL AND PROTEIN NEEDS 2. RD TO FOLLOW-UP 2-3 DAYS, HIGH RISK JEWELS BUCKNER, RD
--- NOTE | 2018-03-31 14:10 | NUR ---
HEMODIALYSIS DONE. 2L OUTPUT. BP 115/54 HR 86. NO S/S OF DISTRESS NOTED
--- NOTE | 2018-03-31 15:50 | NUR ---
PATIENT HAD LARGE BM. STOOL LARGE IN AMOUNT, BROWN AND LOOSE. PATIENT CLEANED AND REPOSITIONED FOR COMFORT. PATIENT TOLERATED WELL
[2018-03-31 16:00] VITALS: BP 110/54
--- NOTE | 2018-03-31 18:06 | NUR ---
SPOKE TO ARTURO MORA AND INFORMED HER ABOUT THE HEMODIALYSIS ORDERED FOR THE PATIENT TOMORROW
--- NOTE | 2018-03-31 19:39 | NUR ---
PATIENT REPORT GIVEN TO WARD CLERK CHARGE NURSE. PATIENT IN STABLE CONDITION
--- NOTE | 2018-03-31 19:40 | NUR ---
RECD. RESTING IN BED, SLEEPING COMFORTABLY, OPENS EYES WHEN AWAKEN THEN CLOSED AGAIN. A/OX1. RESPIRATION EVEN AND UNLABORED. 02 SAT - 98% ON ROOM AIR. LEDA CATH AT THE RIGHT UPPER CHEST COVERED WITH DRESSING, DRY AND INTACT. IV OF NS AT 50 ML/HR INFUSING, RIGHT WRIST G24. GT FEEDING OF NEPHRO AT 20 ML/HR INFUSING AT 20 ML/HR, GT SITE WITH DRESSING, DRY AND INTACT. BILATERAL FOOT WITH PRESSURE ULCERS COVERED WITH GAUZE DRESSING ON FOOT CRADLE, WITH CONTRACTURES. INTRODUCED SELF TO PATIENT, JUST KEEP ON SLEEPING. SAFETY MEASURES ENFORCED. BED ON ALARM, NO APPEARANCE OF PAIN NOTED 0/10. VS STABLE.
[2018-03-31 20:00] VITALS: BP 125/53
[2018-03-31] MEDS: PIPER/TAZO 2.25GM/D5W PREMIX 50 ML IV SCH (21:43)
[2018-03-31] MEDS: SIMVASTATIN 10 MG TAB GT SCH (21:47)
[2018-03-31] MEDS: INSULIN LANTUS 100 UNITS/ML 10 ML VIAL SUBQ SCH (21:49)
--- NOTE | 2018-03-31 21:49 | NUR ---
DUE NIGHT MEDICATIONS GIVEN VIA GT. OPENS EYES THEN WENT BACK TO SLEEP AGAIN.
[2018-04-01] VITALS: BP 129/63
--- NOTE | 2018-04-01 | NUR ---
SLEEPING COMFORTABLY, VS STABLE. NO APPEARANCE OF PAIN NOTE D0/10.
[2018-04-01] MEDS: NACL 0.9% 1,000 ML IV SCH ×2 (00:31→08:22)
[2018-04-01 04:00] VITALS: BP 120/63
--- NOTE | 2018-04-01 04:00 | NUR ---
RESIDUAL CHECK, 5 ML. GT FEEDING TOLERATED WELL.
[2018-04-01 06:19] LABS: BASOPHILS % (AUTO) 0.5 % (0.0-2.0); EOSINOPHILS # (AUTO) 0.4 K/uL (0-0.4); EOSINOPHILS % (AUTO) 4.6 % (0.0-4.0); HEMATOCRIT 35.7 % (36-48); HEMOGLOBIN 11.3 g/dL (12.0-16.0); LYMPHOCYTES # (AUTO) 1.1 K/uL (2.5-16.5); LYMPHOCYTES % (AUTO) 14.4 % (20.5-51.1); MEAN CORPUSCULAR HEMOGLOBIN 29 pg (27-31); MEAN CORPUSCULAR HGB CONC 32 g/dL (33-37); MEAN CORPUSCULAR VOLUME 91.6 fL (80-94); MONOCYTES # (AUTO) 0.6 K/uL (0.8-1.0); MONOCYTES % (AUTO) 7.6 % (1.7-9.3); NEUTROPHILS # (AUTO) 5.6 K/uL (1.8-7.7); NEUTROPHILS % (AUTO) 72.9 % (42.2-75.2); PLATELET COUNT (AUTO) 208 K/uL (140-450); RED BLOOD CELL COUNT(AUTO) 3.89 MIL/uL (4.20-5.40); RED CELL DISTRIBUTION WIDTH 19.8 % (11.6-13.7); WHITE BLOOD COUNT (AUTO) 7.7 K/uL (4.8-10.8)
--- NOTE | 2018-04-01 06:26 | NUR ---
STILL SLEEPING COMFORTABLY IN BED. CONDITION REMAIN STABLE. FOR DIALYSIS TODAY. WILL ENDORSE TO AM NURSE FOR CONTINUITY OF CARE.
[2018-04-01] MEDS: BLOOD GLUCOSE MONITORING 1 DEV DEV FS SCH ×4 (06:33→21:00)
[2018-04-01] MEDS: INSULIN LISPRO SLIDING SCALE 100 UNITS/ML VIAL SUBQ PRN ×4 (06:36→22:11)
[2018-04-01] MEDS: ALBUTEROL SULFATE/IPRATROPIU 3 ML SOL IH SCH ×3 (07:00→19:46)
--- NOTE | 2018-04-01 07:15 | NUR ---
ENDORSED TO AM NURSE FOR CONTINUITY OF CARE.
--- NOTE | 2018-04-01 07:16 | NUR ---
REPORT RECEIVED FROM BEAM DEPARTMENT SUPERVISOR NURSE, PT SLEEPING QUIETLY IN NAD, RESP EVEN UNLABORED, SKIN WARM DRY COLOR WNL, PLAN OF CARE VIEWED, NO IMMEDIATE NEEDS AT THIS TIME ALL SAFETY MEASURES IN PLACE.
[2018-04-01 07:24] LABS: ANION GAP 18.6 (8-16); CARBON DIOXIDE 23.2 mmol/L (21-32); CHLORIDE 97 mmol/L (98-107); GLUCOSE 269 mg/dL (74-106); POTASSIUM 3.8 mmol/L (3.5-5.1); SODIUM SERUM 135 mmol/L (136-145); UREA NITROGEN, BLOOD 48 mg/dL (7-18)
[2018-04-01 07:41] LABS: MAGNESIUM 2.7 mg/dL (1.8-2.4); PHOSPHORUS 4.3 mg/dL (2.5-4.9)
[2018-04-01 07:56] LABS: CREATININE 4.4 mg/dL (0.6-1.3)
[2018-04-01 08:00] VITALS: BP 125/55
--- NOTE | 2018-04-01 08:45 | NUR ---
LARGE BLOODY LOOSE STOOL NOTED, PT CLEANED UP, PERICARE DONE, BED BATH GIVEN, DR ASCENCIO NOTIFIED OF BLOODY STOOL, OCCULT BLOOD SAMPLE COLLECTED. NO OTHER ACTIVE BLEEDING NOTED, WILL CONTINUE TO MONITOR.
[2018-04-01] MEDS: PIPER/TAZO 2.25GM/D5W PREMIX 50 ML IV SCH ×3 (09:00→22:14)
[2018-04-01] MEDS: CARVEDILOL 3.125 MG TAB GT SCH ×2 (09:00→22:15)
[2018-04-01] MEDS: ASPIRIN 81 MG TAB.CHEW GT SCH (09:00)
[2018-04-01] MEDS: APIXABAN 2.5 MG TAB GT SCH (09:00)
--- NOTE | 2018-04-01 09:00 | NUR ---
WOUND CARE EVALUATION NOTES: REASON FOR EVALUATION: BILATERAL LOWER LEG WOUNDS SKIN ASSESSMENT DONE ON THIS 82 Y/O FEMALE PATIENT FROM HOME TO [facility], WITH INITIAL DIAGNOSIS OF WEAKNESS. PAST MEDICAL HISTORY INCLUDE CVA, DIABETES, HTN, AND ESRD WITH HD, CHRONIC BLE PRESSURE ULCER, PER DAUGHTER HOME HEALTH NURSE VISIT TWICE A WEEK AND DID NOT FOLLOW UP PODIATRY APPOINTMENT SINCE LAST ADMISSION AT [facility]. ALL ABOVE INFORMATION WAS OBTAINED FROM THE ADMISSION H&P AND DAUGHTER. DAUGHTER IS AAX4. LABS ARE WBC 7.7, H/H 11.3/35.7, GLUCOSE 269, AND ALBUMIN 3.2. PATIENT IS AWAKE WHEN TOUCHED. SKIN WARM TO TOUCH, BLE COLD, THICK TOENAILS, NO EDEMA, NO HAIR GROWTH AND BILATERAL PEDAL PULSES UNABLE TO ASSESS AT THIS TIME. CONTRACTURE NOTICE TO R/L KNEES. INCONTINENT BOWEL AND BLADDER. BLOODY STOOL NOTICE DURING ASSESSMENT AND PRIMARY RN NOTIFY. PLAN OF CARE AND PRESSURE PREVENTIVE MEASURES DISCUSSED WITH PT. DAUGHTER AND PRIMARY NURSE. PT. SEEN BY DR. ARGUELLES ON 03/31/2018. PENDING LEG X-RAY AND US COMORBIDITIES RELATED TO SKIN BREAKS: INFECTION, DM, IMPAIRED OF MOBILITY, CHRONIC BOWEL INCONTINENT, HOB ELEVATED THE MAJORITY OF THE DAY FOR MEDICAL CONDITION, ESRD WITH HD. INTEGUMENTARY: -GT ZAINAB-STOMA SKIN DRY, CLEAN AND INTACT. -INCONTINENT ASSOCIATE DERMATITIS TO SACRALCOCCYX OLD HEALED SCAR, SURROUNDING SCAR TISSUE NON-BLANCHABLE -PRESSURY INJURY UNSTAGABLE BROWN SCAB R HEEL, 3.5X2.5CM, ZAINAB-WOUND REDNESS INDICATED FURTHER DAMAGE. -DIABETIC ULCER TO RIGHT 1ST TOE PLANTAR 3X3 CM DRY DARK BROWN SCAB, WITH THICK CALLUS AROUND WOUND EDGE, NO ODOR. -VASCULAR ULCER RIGHT LATERAL ANKLE 2X2 CM DRY DARK BROWN SCAB. -VASCULAR ULCER RIGHT MEDIAL ANKLE 2X2 CM DRY DARK BROWN SCAB - DIABETIC ULCER TO LEFT HALLUX AT MEDIAL SIDE WITH 1.5X1.5CM DRY DARK BROWN SCAB, NO ODOR. - GANGARY LEFT 5TH TOE 2.5X1.5 CM DRY, NO ODOR, OSTEOMYELITIS - LEFT HEEL PRESSURE INJURY STAGE 4, 7X4.5X0.3 WOUND BED PALE PINK MOIST WOUND EDGE DRY WITH SURROUNDING SKIN PURPLE/BROWN IN COLOR, INDICATED FURTHER DAMAGE. - LEFT LATERAL ANKLE PRESSURE INJURY STAGE 4, 4X5X0.2CM, WOUND BED BROWN MOIST WITH NO ODOR, IRREGULAR WOUND SHAPE. WOUND EDGE DRY WITH SURROUNDING SKIN NECROTIC TISSUE EXTENDED TO LEFT LATERAL LOWER LEG. -LEFT LOWER LATERAL LEG 90% BLACK NECROTIC WOUND WITH 14X4 CM DRY AND COLD. RECOMMENDATIONS: -SNF FOR WOUND CARE UPON DISCHARGED -CONTINUE TO FOLLOW EMPIRE FOOT AND ANKLE OUT PATIENT CLINIC UPON DISCHARGED. -APPLY Z-GUARD TO SACRALCOCCYX AND COVER WITH FORM DRESSING BID AND PRN IF SOILING -APPLY SOAKED BETADINE KAREN. 4X4 TO LEFT 5TH DIGIT, LEFT / RIGHT ANKLES AND MULTIPLE SCABS WRAP WITH KERLIX ROLL QD -CLEANSE LEFT/RIGHT HEELS PRESSURE INJURIES WITH NS. PAT DRY APPLY SOAKED BETADINE KAREN. WRAP WITH KERLIX ROLL SECURE WITH TAPE QD DAY AND PRN IF SOILING -TURN AND REPOSITION PATIENT Q2H -ASSESS AND MONITOR SKIN CONDITION DURING POSITION CHANGE, PLEASE PAY ATTENTION TO LEFT AND RIGHT HEELS -OFFLOAD BILATERAL HEELS BY PLACING PILLOWS UNDER CALVES AT ALL TIMES, UNLESS OTHERWISE CONTRAINDICATED -HEEL RAISERS TO BILATERAL HEELS AT ALL TIMES -PRESSURE REDISTRIBUTION SURFACE THERAPY -KEEP SKIN CLEAN AND DRY AT ALL TIMES. RECTAL TUBE FOR MOISTURE CONTROL UNLESS OTHERWISE CONTRAINDICATED. RECOMMENDATIONS DISCUSSED WITH PRIMARY RN AND DR. MENDOZA WILL FOLLOW UP PATIENT Q 7 -10 DAYS AND PRN. PLEASE CONTACT WOUND CARE NURSE FOR ANY QUESTION OR CHANGES IN WOUND CONDITION
--- NOTE | 2018-04-01 10:00 | NUR ---
Associate Professor Of Engineering Notes Late Entry: I received a confirmation faxed by Papo from [facility] stating that they have received patient's Clinical information and MD order. followed by a call from Jeanie from [facility] at stating that patient will be accepted and will continue receiving Home Health services at discharge from [facility]. Addendum: 04/03/18 at 1941 by Guerline Cortes CM Associate Professor Of Engineering Notes Late entry: wrong day!
[2018-04-01] MEDS: VIT-B COMP/VIT-C/FOLIC ACID 1 TAB GT SCH (10:06)
[2018-04-01] MEDS: PANTOPRAZOLE 40 MG INJ VIAL IVP SCH ×2 (10:07→22:22)
[2018-04-01] MEDS: LACTOBACILLUS RHAMNOSUS GG 1 EACH CAP PO SCH (10:07)
[2018-04-01 11:00] LABS: PROTHROMBIN TIME 11.3 secs (10.8-13.4)
--- NOTE | 2018-04-01 11:18 | NUR ---
DIALYSIS COMPLETED 1 L TAKEN OUT PER PRASANTH AUGUSTINE
[2018-04-01 12:00] VITALS: BP 140/67
--- NOTE | 2018-04-01 12:04 | NUR ---
[facility] NURSE CHAYITO CALLED FOR UPDATE ON DC PLAN, WANTS TO BE CALLED WHEN PT GETTING DISCHARGED SO SHE CAN RESUME HOME HEALTH SERVICE
--- NOTE | 2018-04-01 13:00 | NUR ---
Pattern Hanger Notes Late Entry: I contacted Patients' Son Dougie Culp at to discuss, confirm and gather additional information about patient. Per patient's son she continues to live at home with daughter Pablito and she is her primary caregiver. Per son she was getting services with [facility] health and will like to continue with services of home health with patient at home after her discharge from [facility]. Per son there is no changes in patient care, medications and equipment. Patient's son thanked me for my assistance and stated not having any questions at the time.
--- NOTE | 2018-04-01 13:14 | NUR ---
PT IS ASLEEP HHN N OT GIVEN
[2018-04-01 16:00] VITALS: BP 122/62
--- NOTE | 2018-04-01 16:32 | NUR ---
VITAL STABLE PT SLEEPING BLOOD SUGAR Addendum: 04/01/18 at 1842 by Cecilia Marie RN BS 264, 6U INSULIN GIVEN, PT'S DAUGHTER AT BEDSIDE
--- NOTE | 2018-04-01 17:00 | NUR ---
Offset Lithographic Press Operator Notes Late Entry: I faxed to [facility] at Patient's Clinical information and MD order for Home Health.
--- NOTE | 2018-04-01 19:23 | NUR ---
REPORT GIVEN TO CIRCULATING NURSE NURSE, PT IN STABLE CONDITION
--- NOTE | 2018-04-01 19:45 | NUR ---
PER FAMILY AND TRAFFIC ROUTING ENGINEER, PT JUST HAD ANOTHER LARGE BLOODY STOOL, NOTIFIED DR AMIN.
--- NOTE | 2018-04-01 19:46 | NUR ---
RECEIVED PT HANNAH RN PT AOX1 APHASIC;, ON TELEMETRY SR, ACCESS FOR DIALYSIS ON RT UPLPER CHEST AV SHUNT ON LEFT ARM IS NOT WORKING G TUBE FEEDING WELL TOLERATED IV ON RT HAND INFUSING WELL TKO RELATIVES AT BED SIDE INITIAL ASSESSMENT DONE
--- NOTE | 2018-04-01 19:51 | NUR ---
PER DAUGHTER AND SPOUSE, NOT TO PERFORM INCENTIVE SPIROMETER SINCE PATIENT IS UNABLE TO DO AND THEY DO NOT WANT TO STRESS HER
[2018-04-01 20:00] VITALS: BP 138/55
[2018-04-01] MEDS: INSULIN LANTUS 100 UNITS/ML 10 ML VIAL SUBQ SCH (21:00)
--- NOTE | 2018-04-01 22:00 | NUR ---
PT KHAS BEEN REPOSITIONED Q2H NOT DISTRESS NOTED G TUBE FEEDING WELL TOLERATED ON TELE SR
[2018-04-01] MEDS: SIMVASTATIN 10 MG TAB GT SCH (22:14)
[2018-04-02] VITALS: BP 116/62
--- NOTE | 2018-04-02 01:00 | NUR ---
SPONGE BATH GIVEN LINEN CHANGED PT GETTING SLEEP SR ON TELMETRY G TUBE FEEDING WELL TOLERATED
[2018-04-02 04:00] VITALS: BP 147/61
--- NOTE | 2018-04-02 04:00 | NUR ---
REPOSITIONED Q2H G TUBE FEEDING WELL TOLERATED LINEN CHANGED ON TELE SR
[2018-04-02] MEDS: PIPER/TAZO 2.25GM/D5W PREMIX 50 ML IV SCH ×3 (04:27→21:44)
[2018-04-02] MEDS: INSULIN LISPRO SLIDING SCALE 100 UNITS/ML VIAL SUBQ PRN ×3 (05:52→22:03)
[2018-04-02 06:25] LABS: BASOPHILS # (AUTO) 0.1 K/uL (0.00-0.22); BASOPHILS % (AUTO) 0.7 % (0.0-2.0); EOSINOPHILS # (AUTO) 0.2 K/uL (0-0.4); EOSINOPHILS % (AUTO) 3.1 % (0.0-4.0); HEMOGLOBIN 11.5 g/dL (12.0-16.0); LYMPHOCYTES # (AUTO) 1.6 K/uL (2.5-16.5); LYMPHOCYTES % (AUTO) 20.2 % (20.5-51.1); MEAN CORPUSCULAR HEMOGLOBIN 29 pg (27-31); MEAN CORPUSCULAR HGB CONC 32 g/dL (33-37); MEAN CORPUSCULAR VOLUME 91.5 fL (80-94); MONOCYTES # (AUTO) 0.8 K/uL (0.8-1.0); MONOCYTES % (AUTO) 10.4 % (1.7-9.3); NEUTROPHILS # (AUTO) 5.1 K/uL (1.8-7.7); NEUTROPHILS % (AUTO) 65.6 % (42.2-75.2); PLATELET COUNT (AUTO) 216 K/uL (140-450); RED BLOOD CELL COUNT(AUTO) 3.93 MIL/uL (4.20-5.40); RED CELL DISTRIBUTION WIDTH 19.4 % (11.6-13.7); WHITE BLOOD COUNT (AUTO) 7.8 K/uL (4.8-10.8)
--- NOTE | 2018-04-02 06:30 | NUR ---
BLOOD SUGAR TEST 305 COVERAGE WITH 8 UNITS SUBQ HUMALOG ON RT ARM
--- NOTE | 2018-04-02 07:10 | NUR ---
PT IS ENDORSED TO DAY SHIFT HANNAH FOR CONTINUITY OF CARE
[2018-04-02 07:15] LABS: ANION GAP 18.1 (8-16); CARBON DIOXIDE 23.5 mmol/L (21-32); CHLORIDE 99 mmol/L (98-107); CREATININE 3.3 mg/dL (0.6-1.3); GLUCOSE 331 mg/dL (74-106); POTASSIUM 3.6 mmol/L (3.5-5.1); SODIUM SERUM 137 mmol/L (136-145); UREA NITROGEN, BLOOD 36 mg/dL (7-18)
--- NOTE | 2018-04-02 07:20 | NUR ---
REPORT RECEIVED FROM ROAD MANAGER NRUSE, PT RESTING QUIETLY IN NAD, RESP EVEN UNLABORED, SKIN WARM DRY COLOR WNL, PT APPREAS IN NO PAIN OR DISCOMFORT, GT FEED ONGOING, IVF INFUSING, SITE WNL, PLAN OF CARE REVIEWED, NO IMMEDIATE NEEDS ATT HIST ELIZABETH, WILL CONTINUE TO MONITOR
[2018-04-02] MEDS: ALBUTEROL SULFATE/IPRATROPIU 3 ML SOL IH SCH ×3 (07:38→19:43)
[2018-04-02] MEDS: BLOOD GLUCOSE MONITORING 1 DEV DEV FS SCH ×4 (07:40→21:52)
[2018-04-02 07:41] LABS: MAGNESIUM 2.3 mg/dL (1.8-2.4); PHOSPHORUS 1.9 mg/dL (2.5-4.9)
[2018-04-02 08:00] VITALS: BP 135/47
[2018-04-02] MEDS: PANTOPRAZOLE 40 MG INJ VIAL IVP SCH ×2 (08:47→21:43)
[2018-04-02] MEDS: LACTOBACILLUS RHAMNOSUS GG 1 EACH CAP PO SCH (08:47)
[2018-04-02] MEDS: VIT-B COMP/VIT-C/FOLIC ACID 1 TAB GT SCH (08:47)
[2018-04-02] MEDS: ASPIRIN 81 MG TAB.CHEW GT SCH (08:47)
[2018-04-02] MEDS: CARVEDILOL 3.125 MG TAB GT SCH ×2 (08:47→21:44)
--- NOTE | 2018-04-02 09:30 | NUR ---
FOUND GT TO BE CLOGGED WHEN AM MEDS DUE, FLUSH WITH WARM WATER UNSUCCESSFUL, ATTEMPTED TO FLUSH WITH SODA, WILL LET SODA SOAK AND TRY CINDA, DAUGHTER AT BEDSIDE, SHE STATES GT CLOGGES UP AT HOME OCCASIONALLY, SOMETIMES RESOLVES AFTER SODA, WILL ATTEMPT LATER
--- NOTE | 2018-04-02 10:00 | NUR ---
Borough Coordinator Notes Late Entry: I received a confirmation faxed by Papo from [facility] stating that they have received patient's Clinical information and MD order. followed by a call from Jeanie from [facility] at stating that patient will be accepted and will continue receiving Home Health services at discharge from [facility]
--- NOTE | 2018-04-02 10:20 | NUR ---
GT FLUSH ATTEMPTED AGAIN, UNABLE TO FLUSH, MULTIPLE NURSES TRIED, DR MENDOZA TO BEDSIDE.
[2018-04-02 12:00] VITALS: BP 125/50
[2018-04-02] MEDS ORDERED: SODIUM PHOSPHATE 15 MMOLE in NACL 0.9% 250 ML IV SCH (14:00)
--- NOTE | 2018-04-02 14:19 | NUR ---
GT REPLACED BY DR MENDOZA AND DR ASCENCIO AT BEDSIDE, PT AMANDA WELL, CONFIRMATION XRAY TO BE ORDERED
--- NOTE | 2018-04-02 15:20 | NUR ---
RADIOLOGY AT BEDSIDE FOR PLACEMENT CONFIRMATION XRAY
[2018-04-02 16:00] VITALS: BP 133/52
--- NOTE | 2018-04-02 16:20 | NUR ---
GT ACCIDENTALLY CAME OUT, PT FOUND WITH GT ON HER STOMACH, DR ASCENCIO NOTIFIED, BEDSIDE GLUCOSE 110, NO INSULIN NEEDED, LARGE BM, PERICARE DONE, RAHUL [id number], PT AMANDA WELL
--- NOTE | 2018-04-02 17:45 | NUR ---
DR MENDOZA AT BEDSIDE TO REPLACE GT
--- NOTE | 2018-04-02 18:32 | NUR ---
RADIOLOGY AT BEDSIDE FOR PLACEMENT CONFIRMATION XRAY
--- NOTE | 2018-04-02 19:20 | NUR ---
REPORT GIVEN TO MEDICAL BILLING AND CODING INSTRUCTOR NURSE AMAIRANI PT IN STABLE CONDITION.
--- NOTE | 2018-04-02 19:22 | NUR ---
RECEIVED PT FROM HANNAH RN PT ALERT IN PERSON HX DEMENTIA ACCESS TO DIALYSIS ON RT UPPER CHEST LEFT ARM AV SHUKNT NOT IN USE G TUBE FEEDING WELL TOLERATED RELATIVES AT BERD SIDE INITIAL ASSESSMENT DONE
[2018-04-02 20:00] VITALS: BP 158/78
[2018-04-02] MEDS ORDERED: APIXABAN 2.5 MG TAB PO SCH (21:00)
--- NOTE | 2018-04-02 21:30 | NUR ---
BLOOD SUGAR TEST 342 COVERAGE WITH 8 UNITS SUBQ HUMALOG ON RT ARM
[2018-04-02] MEDS: APIXABAN 2.5 MG TAB GT SCH (21:40)
[2018-04-02] MEDS: SIMVASTATIN 10 MG TAB GT SCH (21:45)
[2018-04-02] MEDS: INSULIN LANTUS 100 UNITS/ML 10 ML VIAL SUBQ SCH (22:00)
[2018-04-03] VITALS: BP 143/57
--- NOTE | 2018-04-03 | NUR ---
PT HAS TEMP 100.9 TYLENOL WILL BE GIVEN ORDER PT HAS BEEN REPOSITIONED Q2H ON TELMETRY SR NOT DISTRESS NOTED
[2018-04-03] MEDS: ACETAMINOPHEN 325 MG TAB PO PRN ×2 (00:47→16:51)
[2018-04-03 04:00] VITALS: BP 147/60
--- NOTE | 2018-04-03 04:00 | NUR ---
SPONGE BATH GIVEN LINEN CHANGED PT HAS BEEN MONITORING CLOSE NOT DISTRESS NOTED
[2018-04-03] MEDS: PIPER/TAZO 2.25GM/D5W PREMIX 50 ML IV SCH ×2 (04:53→13:38)
[2018-04-03] MEDS: INSULIN LISPRO SLIDING SCALE 100 UNITS/ML VIAL SUBQ PRN ×2 (06:02→13:37)
[2018-04-03] MEDS: BLOOD GLUCOSE MONITORING 1 DEV DEV FS SCH ×3 (06:05→18:00)
--- NOTE | 2018-04-03 06:17 | NUR ---
BLOOD SUGAR TEST 324 WAS COVERAGE WITH 8 UNITS SUBQ HUMALOG ON RT ARM
[2018-04-03 06:25] LABS: BASOPHILS # (AUTO) 0.1 K/uL (0.00-0.22); BASOPHILS % (AUTO) 0.8 % (0.0-2.0); EOSINOPHILS # (AUTO) 0.2 K/uL (0-0.4); EOSINOPHILS % (AUTO) 2.2 % (0.0-4.0); HEMATOCRIT 34.2 % (36-48); HEMOGLOBIN 10.8 g/dL (12.0-16.0); LYMPHOCYTES # (AUTO) 2.5 K/uL (2.5-16.5); LYMPHOCYTES % (AUTO) 23.3 % (20.5-51.1); MEAN CORPUSCULAR HEMOGLOBIN 29 pg (27-31); MEAN CORPUSCULAR HGB CONC 32 g/dL (33-37); MONOCYTES % (AUTO) 9.7 % (1.7-9.3); NEUTROPHILS # (AUTO) 6.8 K/uL (1.8-7.7); PLATELET COUNT (AUTO) 234 K/uL (140-450); RED BLOOD CELL COUNT(AUTO) 3.76 MIL/uL (4.20-5.40); RED CELL DISTRIBUTION WIDTH 19.6 % (11.6-13.7); WHITE BLOOD COUNT (AUTO) 10.6 K/uL (4.8-10.8)
[2018-04-03] MEDS: ALBUTEROL SULFATE/IPRATROPIU 3 ML SOL IH SCH ×2 (06:51→13:09)
[2018-04-03 06:58] LABS: ANION GAP 21.8 (8-16); CARBON DIOXIDE 21.9 mmol/L (21-32); CHLORIDE 101 mmol/L (98-107); GLUCOSE 354 mg/dL (74-106); POTASSIUM 3.7 mmol/L (3.5-5.1); SODIUM SERUM 141 mmol/L (136-145)
[2018-04-03 07:12] LABS: MAGNESIUM 2.7 mg/dL (1.8-2.4); PHOSPHORUS 5.1 mg/dL (2.5-4.9)
--- NOTE | 2018-04-03 07:15 | NUR ---
RECEIVED PATIENT REPORT AT BEDSIDE. PATIENT AWAKE BUT APHASIC. NO S/S OF DISTRESS. PATIENT ON ROOM AIR. NO SOB. PATIENT ON TELE MONITORING. BED LOWERED WITH CALL LIGHT WITHIN REACH. WILL CONTINUE TO MONITOR
[2018-04-03 07:23] LABS: UREA NITROGEN, BLOOD 66 mg/dL (7-18)
[2018-04-03 07:43] VITALS: BP 140/56
[2018-04-03] MEDS ORDERED: CARV3.122 GT (08:19)
[2018-04-03] MEDS: CARVEDILOL 3.125 MG TAB GT SCH (09:00)
[2018-04-03] MEDS: LACTOBACILLUS RHAMNOSUS GG 1 EACH CAP PO SCH (10:04)
[2018-04-03] MEDS: PANTOPRAZOLE 40 MG INJ VIAL IVP SCH (10:04)
[2018-04-03] MEDS: VIT-B COMP/VIT-C/FOLIC ACID 1 TAB GT SCH (10:04)
[2018-04-03] MEDS: ASPIRIN 81 MG TAB.CHEW GT SCH (10:05)
[2018-04-03] MEDS: APIXABAN 2.5 MG TAB GT SCH (10:11)
--- NOTE | 2018-04-03 11:30 | NUR ---
HEMODIALYSIS DONE. 2L OUTPUT. BP 128/35 HR 98. NO S/S OF DISTRESS NOTED
[2018-04-03 12:00] VITALS: BP 145/68
--- NOTE | 2018-04-03 12:15 | NUR ---
WOUND DRESSINGS CHANGED. PICTURES TAKEN. PATIENT TURNED AND REPOSITIONED FOR COMFORT.
--- NOTE | 2018-04-03 13:00 | NUR ---
PATIENT HAD A BM. STOOL BROWN, LOOSE AND MODERATE IN AMOUNT. PATIENT CLEANED AND REPOSITIONED. PATIENT TOLERATED WELL
--- NOTE | 2018-04-03 15:30 | NUR ---
Steam Clothes Press Operator Notes: I received a call from Mason from [facility] confirming that Patient has been accepted and will continue receiving services from [facility] Services at discharge from [facility]. I informed Mason that Patient will be discharging today evening possibly. Per Emmett he will be placing a call to to patient's son and daughter to scheduled an appointment with RN with Patient starting tomorrow 04/04/18. I thanked him for the information and told him that I will contact Patient's son Dougie Culp to be aware of call. I confirmed family contact number with Mason with [facility] and I ended the call.
--- NOTE | 2018-04-03 16:00 | NUR ---
Home Insurance Agent Notes: I contacted Patients' Son Dougie Culp at to discuss, Patient information about patient. I informed patient's son about Patient's possible discharge today with [facility]. Per son he is on agreement and will like patient to continue home health services after her discharge from [facility]. I informed Patient's son Dougie that [facility] has already received the referral and confirmed that they will provide patient's with services starting tomorrow 04/04/18 in the AM. I also informed patient's son to expect a call from Bio RN to scheduled a time of service. Patient's son thanked me for my assistance.
[2018-04-03 18:00] VITALS: BP 152/68
--- NOTE | 2018-04-03 18:00 | NUR ---
TEMP RECHECKED 98.4
--- NOTE | 2018-04-03 18:00 | NUR ---
PATIENT'S DAUGHTER DID NOT WANT TO HAVE INSULIN ADMINISTERED AT THIS TIME
--- NOTE | 2018-04-03 18:30 | NUR ---
PATIENT DISCHARGED TO HOME. DISCHARGE INSTRUCTIONS AND DISCHARGE PRESCRIPTIONS GIVEN TO THE PATIENT'S DAUGHTER. PATIENT'S DAUGHTER VERBALIZED UNDERSTANDING. IV LINE DISCONTINUED. TELE LEADS TAKEN OFF. PATIENT LEFT WITH ALL HER BELONGINGS AND DISCHARGE PAPERS. PATIENT LEFT IN STABLE CONDITION
== END 2018-04-03 18:30 | disposition home health service (06) | DRG 871 ==
LOC: MED 14:55 → MTU 18:37
PROVIDERS: ADMIT General Practice; ATTEND General Practice
PROC: 5A1D70Z Performance of Urinary Filtration, Intermittent, Less than 6 Hours Per Day (ICD-10-PCS; principal; 2018-03-31)
PROC: 5A1D70Z Performance of Urinary Filtration, Intermittent, Less than 6 Hours Per Day (ICD-10-PCS; 2018-04-01)
PROC: 0DH63UZ Insertion of Feeding Device into Stomach, Percutaneous Approach (ICD-10-PCS; 2018-04-02)
PROC: 5A1D70Z Performance of Urinary Filtration, Intermittent, Less than 6 Hours Per Day (ICD-10-PCS; 2018-04-03)
DX: A41.9 Sepsis, unspecified organism (principal); N18.6 End stage renal disease; N17.0 Acute kidney failure with tubular necrosis; G93.41 Metabolic encephalopathy; I50.43 Acute on chronic combined systolic (congestive) and diastolic (congestive) heart failure; G91.0 Communicating hydrocephalus; I13.2 Hypertensive heart and chronic kidney disease with heart failure and with stage 5 chronic kidney disease, or end stage renal disease; E87.1 Hypo-osmolality and hyponatremia; E87.2 Acidosis; E11.52 Type 2 diabetes mellitus with diabetic peripheral angiopathy with gangrene; M86.9 Osteomyelitis, unspecified; Z68.1 Body mass index [BMI] 19.9 or less, adult; K92.2 Gastrointestinal hemorrhage, unspecified; Z66 Do not resuscitate; E11.65 Type 2 diabetes mellitus with hyperglycemia; E78.5 Hyperlipidemia, unspecified; F03.90 Unspecified dementia, unspecified severity, without behavioral disturbance, psychotic disturbance, mood disturbance, and anxiety; E87.8 Other disorders of electrolyte and fluid balance, not elsewhere classified; E83.42 Hypomagnesemia; E11.69 Type 2 diabetes mellitus with other specified complication; E83.52 Hypercalcemia; E02 Subclinical iodine-deficiency hypothyroidism; D64.9 Anemia, unspecified; E11.22 Type 2 diabetes mellitus with diabetic chronic kidney disease; E11.621 Type 2 diabetes mellitus with foot ulcer; E78.1 Pure hyperglyceridemia; I25.10 Atherosclerotic heart disease of native coronary artery without angina pectoris; I65.22 Occlusion and stenosis of left carotid artery; L89.629 Pressure ulcer of left heel, unspecified stage; L89.619 Pressure ulcer of right heel, unspecified stage; Z86.73 Personal history of transient ischemic attack (TIA), and cerebral infarction without residual deficits; Z93.1 Gastrostomy status; Z99.2 Dependence on renal dialysis; Z79.4 Long term (current) use of insulin; Z79.01 Long term (current) use of anticoagulants; Z79.899 Other long term (current) drug therapy; Z79.82 Long term (current) use of aspirin
CPT/HCPCS: 36415; 70450; 71045; 73630; 74241; 80048; 80053; 82140; 82150; 82272; 82948; 83036; 83605; 83690; 83735; 83880; 84100; 84134; 84436; 84439; 84443; 84479; 84484; 85025; 85610; 85730; 87040; 87081; 93005; 93880; 93925; 93970; 94640; 96365; 96367; 96375; 99291; C9113; J1642; J1644; J1815; J2543; J3370; J7030; J7060; J7620; P9046; Q0092